=== PATIENT | female | born 1945 | race Caucasian/White ===

== ENCOUNTER → 2017-09-28 | Outpatient (CLI) | payer MEDICARE, BC ==
--- NOTE | 2017-09-28 13:45 | US ---
EXAMINATION TYPE: US thyroid st tissue head/neck DATE OF EXAM: 09/28/2017 COMPARISON: NONE CLINICAL HISTORY: E04.1 Thyroid nodule. Difficulty swallowing, history of nodules GLAND SIZE: Right Lobe: 4.2 x 2.4 x 2.5 cm Overall Parenchyma: heterogenous Left Lobe: 4.3 x 1.5 x 1.2 cm Overall Parenchyma: heterogeneous Isthmus Thickness: 0.2 cm NODULES RIGHT: # of nodules measured on right: 2 1. 1.1 X 0.9 x 0.8 cm isoechoic solid nodule at the upper pole with well-defined margins; . This n odule is taller than wide and shows intranodular vascularity. Prior size: no prior exam here 2. 2.9 X 2.4 x 2.1 cm isoechoic mixed nodule at the mid pole with well-defined margins; . This nod ule is taller than wide and shows intranodular vascularity. Prior size: no prior exam LEFT: # of nodules measured on left: 1 1. 1.2 X 0.7 x 0.8 cm hypoechoic solid nodule at the mid pole with well-defined margins; . This no dule is wider than tall and shows intranodular vascularity. Prior size: no prior exam here ISTHMUS: # of nodules measured in the isthmus: 0 Bilateral neck scanned, no evidence of lymphadenopathy. Heterogeneous thyroid gland. 2 nodules measured on the right and 1 on the left IMPRESSION: Nonspecific thyroid nodularity and heterogeneity. The need to biopsy should be made on a clinical basis.
== END | disposition home or self-care (01) ==
LOC: RADUSWWP 13:02
PROVIDERS: ATTEND Otolaryngology
DX: E04.1 Nontoxic single thyroid nodule (principal)
CPT/HCPCS: 76536

== ENCOUNTER 2017-12-04 13:37 | Day surgery (SDC) | payer BC, MEDICARE ==
[2017-12-04 13:53] VITALS: BP 129/68; PULSE 73; RESP 20; TEMP 98
--- NOTE | 2017-12-04 14:56 | US ---
ULTRASOUND GUIDED FNA THYROID BIOPSY: CLINICAL HISTORY: Large right thyroid nodule and 2 additional smaller nodules. FINDINGS: The procedure was explained to the patient. The patient could only tolerate a biopsy of a single nod ule. Patient deferred biopsy of the 2 smaller nodules. The risks, complications, benefits and alterna tives were discussed and any questions were answered. Informed consent was obtained. Patient was pl aced supine on the ultrasound table and prepped and draped in the usual sterile fashion. Utilizing a 25 gauge needle, five passes were made into the large right thyroid nodule. Patient was stable throughout the procedure. Pathology is pending. All elements of maximal barrier technique were utilized. IMPRESSION: 1. Successful ultrasound guided FNA thyroid biopsy.
== END 2017-12-04 14:35 | disposition home or self-care (01) ==
LOC: RADPROMAIN 13:37
PROVIDERS: ATTEND Otolaryngology
DX: E04.1 Nontoxic single thyroid nodule (principal)
CPT/HCPCS: 10022; 76942; 88173; 88305

== ENCOUNTER 2018-06-03 22:40 | Inpatient (IN) | payer MEDICARE, OTHER ==
[2018-06-03] MEDS ORDERED: MORPHINE SULFATE 4 MG/ML SYRINGE IVP STA (22:55)
[2018-06-03] MEDS ORDERED: DIAZEPAM 5 MG/ML 2 ML INJ IVP STA (22:55)
--- NOTE | 2018-06-03 22:58 | ED ---
Fall HPI - General Chief Complaint: Fall Stated Complaint: Fall with hip injury Time Seen by Provider: 06/03/18 22:46 Source: patient Mode of arrival: EMS - History of Present Illness Initial Comments: Lu is a 72-year-old female presents the emergency department today via ambulance for evaluation of right-sided hip pain. Patient reports that she was in her restroom, she stepped on a rug which slid out from under her and she fell , she reports that her right leg twisted and then she fell onto her right hip. She reports significant pain in her right hip, she has not been able to stand or bear weight since that time. In route to the hospital she did receive Zofran and fentanyl she reports temporarily eased her pain however she reports now she feels as though she is having muscle spasms or charley horse of her thigh which is worsening everything. Patient denies striking her head or neck, she denies any loss of consciousness. She denies any neck back or upper extremity pain. She reports all of her pain and is in her right hip and the muscle spasm in her right thigh. - Related Data Home Medications Medication Instructions Recorded Confirmed Escitalopram Oxalate 15 mg PO DAILY 03/08/16 12/04/17 LORazepam [Lorazepam] 0.5 mg PO HS 03/08/16 12/04/17 Latanoprost [Xalatan 0.005%] 1 drop BOTH EYES HS 03/08/16 12/04/17 Allergies Allergy/AdvReac Type Severity Reaction Status Date / Time iodine AdvReac Anaphylaxis Verified 06/03/18 22:49 Review of Systems ROS Statement: Those systems with pertinent positive or pertinent negative responses have been documented in the HPI. ROS Other: All systems not noted in ROS Statement are negative. Past Medical History Additional Past Medical History / Comment(s): neck injury - fx History of Any Multi-Drug Resistant Organisms: None Reported Past Surgical History: Bladder Surgery, Hysterectomy Additional Past Surgical History / Comment(s): thyroid, cystocele, rectocele, breast biopsy Past Anesthesia/Blood Transfusion Reactions: Postoperative Nausea & Vomiting ( PONV) Past Psychological History: Depression Smoking Status: Never smoker Past Alcohol Use History: Occasional Past Drug Use History: None Reported General Exam - General Exam Comments Initial Comments: Physical Exam GENERAL: Patient is well-developed and well-nourished. Patient is nontoxic and well- hydrated and is in moderate distress secondary to pain HENT: Normocephalic, Atraumatic. EYES: PERRL, EOMI PULMONARY: Unlabored respirations. CARDIOVASCULAR: There is a regular rate and rhythm without any murmurs gallops or rubs. ABDOMEN: Soft and nontender with normal bowel sounds. SKIN: Skin is clear with no lesions or rashes and otherwise unremarkable. : Deferred NEUROLOGIC: Patient is alert and oriented x3. Moving all extremities spontaneously MUSCULOSKELETAL: Decreased ROM of right lower extremity secondary to pain, hip is in a flexed position, and he is also on a flexed position. Does not appear to be shortened and rotated. Vascularly intact distally to the injury PSYCHIATRIC: Normal psychiatric evaluation. Limitations: no limitations Limitations: no limitations Course Vital Signs 06/03/18 22:45 Temperature 97.7 F Pulse Rate 75 Respiratory 16 Rate Blood Pressure 153/97 O2 Sat by Pulse 96 Oximetry Medical Decision Making - Medical Decision Making The patient was seen and evaluated, history was obtained from the patient and EMS Patient with a mechanical slip and fall on a rug that was placed over a tile surface, complaining of right hip pain at the time of arrival she describes her pain as a muscle spasm Trauma workup was ordered Patient declined morphine, stating that it causes her nausea and vomiting Patient did receive Zofran and Fentanyl en route to the hospital X-ray of the pelvis does confirm an impacted subcapital fracture of the right hip, these results were discussed with the patient who requests a consult to [facility] for admission She care was discussed with Dr. Jerez who accepts the admission to his service with a consult to medicine for medical management. Admission orders were placed , given the patient will not tolerate morphine, when necessary Dilaudid was ordered with when necessary antiemetics including Zofran and Compazine with Benadryl for any agitation caused by the Compazine. Morales catheter was ordered as well as IV fluids. Patient has been were updated on the plan. - Lab Data Result diagrams: 06/03/18 23:23 06/03/18 23:23 Lab Results 06/03/18 06/03/18 06/03/18 Range/Units 23:23 23:23 23:23 WBC 14.0 H (3.8-10.6) k/uL RBC 4.68 (3.80-5.40) m/uL Hgb 13.6 (11.4-16.0) gm/dL Hct 40.7 (34.0-46.0) % MCV 87.1 (80.0-100.0) fL MCH 29.2 (25.0-35.0) pg MCHC 33.5 (31.0-37.0) g/dL RDW 12.9 (11.5-15.5) % Plt Count 279 (150-450) k/uL Neutrophils % 82 % Lymphocytes % 13 % Monocytes % 3 % Eosinophils % 1 % Basophils % 0 % Neutrophils # 11.5 H (1.3-7.7) k/uL Lymphocytes # 1.9 (1.0-4.8) k/uL Monocytes # 0.4 (0-1.0) k/uL Eosinophils # 0.2 (0-0.7) k/uL Basophils # 0.1 (0-0.2) k/uL PT (9.0-12.0) sec INR (<1.2) APTT (22.0-30.0) sec Sodium 137 (137-145) mmol/L Potassium 4.5 (3.5-5.1) mmol/L Chloride 105 (98-107) mmol/L Carbon Dioxide 22 (22-30) mmol/L Anion Gap 10 mmol/L BUN 25 H (7-17) mg/dL Creatinine 1.00 (0.52-1.04) mg/dL Est GFR (CKD-EPI)AfAm 66 (>60 ml/min/1.73 sqM) Est GFR (CKD-EPI)NonAf 58 (>60 ml/min/1.73 sqM) Glucose 124 H (74-99) mg/dL Calcium 9.5 (8.4-10.2) mg/dL Total Bilirubin 0.4 (0.2-1.3) mg/dL AST 27 (14-36) U/L ALT 29 (9-52) U/L Alkaline Phosphatase 137 H (38-126) U/L Total Creatine Kinase 59 (30-135) U/L Total Protein 7.4 (6.3-8.2) g/dL Albumin 4.2 (3.5-5.0) g/dL Urine Color Urine Appearance (Clear) Urine pH (5.0-8.0) Ur Specific [place] (1.001-1.035) Urine Protein (Negative) Urine Glucose (UA) (Negative) Urine Ketones (Negative) Urine Blood (Negative) Urine Nitrite (Negative) Urine Bilirubin (Negative) Urine Urobilinogen (<2.0) mg/dL Ur Leukocyte Esterase (Negative) Urine Opiates Screen (NotDetected) Ur Oxycodone Screen (NotDetected) Urine Methadone Screen (NotDetected) Ur Propoxyphene Screen (NotDetected) Ur Barbiturates Screen (NotDetected) U Tricyclic Antidepress (NotDetected) Ur Phencyclidine Scrn (NotDetected) Ur Amphetamines Screen (NotDetected) U Methamphetamines Scrn (NotDetected) U Benzodiazepines Scrn (NotDetected) Urine Cocaine Screen (NotDetected) U Marijuana (THC) Screen (NotDetected) Serum Alcohol <10 mg/dL 06/03/18 06/03/18 Range/Units 23:23 23:23 WBC (3.8-10.6) k/uL RBC (3.80-5.40) m/uL Hgb (11.4-16.0) gm/dL Hct (34.0-46.0) % MCV (80.0-100.0) fL MCH (25.0-35.0) pg MCHC (31.0-37.0) g/dL RDW (11.5-15.5) % Plt Count (150-450) k/uL Neutrophils % % Lymphocytes % % Monocytes % % Eosinophils % % Basophils % % Neutrophils # (1.3-7.7) k/uL Lymphocytes # (1.0-4.8) k/uL Monocytes # (0-1.0) k/uL Eosinophils # (0-0.7) k/uL Basophils # (0-0.2) k/uL PT 9.5 (9.0-12.0) sec INR 1.0 (<1.2) APTT 20.5 L (22.0-30.0) sec Sodium (137-145) mmol/L Potassium (3.5-5.1) mmol/L Chloride (98-107) mmol/L Carbon Dioxide (22-30) mmol/L Anion Gap mmol/L BUN (7-17) mg/dL Creatinine (0.52-1.04) mg/dL Est GFR (CKD-EPI)AfAm (>60 ml/min/1.73 sqM) Est GFR (CKD-EPI)NonAf (>60 ml/min/1.73 sqM) Glucose (74-99) mg/dL Calcium (8.4-10.2) mg/dL Total Bilirubin (0.2-1.3) mg/dL AST (14-36) U/L ALT (9-52) U/L Alkaline Phosphatase (38-126) U/L Total Creatine Kinase (30-135) U/L Total Protein (6.3-8.2) g/dL Albumin (3.5-5.0) g/dL Urine Color Yellow Urine Appearance Clear (Clear) Urine pH 7.5 (5.0-8.0) Ur Specific [place] 1.013 (1.001-1.035) Urine Protein Negative (Negative) Urine Glucose (UA) Negative (Negative) Urine Ketones Trace H (Negative) Urine Blood Negative (Negative) Urine Nitrite Negative (Negative) Urine Bilirubin Negative (Negative) Urine Urobilinogen <2.0 (<2.0) mg/dL Ur Leukocyte Esterase Negative (Negative) Urine Opiates Screen Not Detected (NotDetected) Ur Oxycodone Screen Not Detected (NotDetected) Urine Methadone Screen Not Detected (NotDetected) Ur Propoxyphene Screen Not Detected (NotDetected) Ur Barbiturates Screen Not Detected (NotDetected) U Tricyclic Antidepress Not Detected (NotDetected) Ur Phencyclidine Scrn Not Detected (NotDetected) Ur Amphetamines Screen Not Detected (NotDetected) U Methamphetamines Scrn Not Detected (NotDetected) U Benzodiazepines Scrn Detected H (NotDetected) Urine Cocaine Screen Not Detected (NotDetected) U Marijuana (THC) Screen Not Detected (NotDetected) Serum Alcohol mg/dL - EKG Data -: EKG Interpreted by Me EKG Comments: EKG obtained at 11:26 PM, rate is 94, rhythm is sinus, there is noted to be frequent PVCs and significant artifact secondary to the patient's agitation. There is no acute ST elevations or depressions no evidence of acute ischemia or infarction. Disposition Clinical Impression: Fall, Fracture of hip, right, closed Disposition: ADMITTED IP TO THIS HOSP Is patient prescribed a controlled substance at d/c from ED?: No Referrals: Clinton Finch MD [Primary Care Provider] - 1-2 days
[2018-06-03 23:45] LABS: Basophils # (A) 0.1 k/uL (0-0.2); Basophils % (A) 0 %; Eosinophils # (A) 0.2 k/uL (0-0.7); Eosinophils % (A) 1 %; HCT 40.7 % (34.0-46.0); HGB 13.6 gm/dL (11.4-16.0); Lymphocytes # (A) 1.9 k/uL (1.0-4.8); Lymphocytes % (A) 13 %; MCH 29.2 pg (25.0-35.0); MCHC 33.5 g/dL (31.0-37.0); MCV 87.1 fL (80.0-100.0); Mean Platelet Volume 7.3; Monocytes # (A) 0.4 k/uL (0-1.0); Monocytes % (A) 3 %; Neutrophils # (A) 11.5 k/uL (1.3-7.7); Neutrophils % (A) 82 %; Platelet Count 279 k/uL (150-450); RBC 4.68 m/uL (3.80-5.40); RDW 12.9 % (11.5-15.5)
[2018-06-03 23:56] LABS: ALT 29 U/L (9-52); AST 27 U/L (14-36); Albumin 4.2 g/dL (3.5-5.0); Alcohol <10 mg/dL; Alkaline Phosphatase 137 U/L (38-126); Anion Gap 10 mmol/L; Blood Urea Nitrogen 25 mg/dL (7-17); Calcium 9.5 mg/dL (8.4-10.2); Carbon Dioxide 22 mmol/L (22-30); Chloride 105 mmol/L (98-107); Glucose 124 mg/dL (74-99); Potassium 4.5 mmol/L (3.5-5.1); Sodium 137 mmol/L (137-145); Total Bilirubin 0.4 mg/dL (0.2-1.3); Total Protein 7.4 g/dL (6.3-8.2)
[2018-06-03 23:57] LABS: Appearance,Urine Clear (Clear); Bilirubin,Urine Negative (Negative); Blood,Urine Negative (Negative); Color,Urine Yellow; Glucose,Urine (UA) Negative (Negative); Ketones,Urine Trace (Negative); Leukocyte Esterase,Urine Negative (Negative); Nitrite,Urine Negative (Negative); PH, Urine 7.5 (5.0-8.0); Protein,Urine Negative (Negative); Specific Gravity,Urine 1.013 (1.001-1.035); Urobilinogen,Urine <2.0 mg/dL (<2.0)
--- NOTE | 2018-06-04 00:02 | XR ---
EXAMINATION TYPE: XR pelvis AP view DATE OF EXAM: 06/03/2018 COMPARISON: NONE HISTORY: Fall. Hip pain TECHNIQUE: Single view FINDINGS: There is impacted subcapital fracture right femur. There is up to 1 cm impaction. There is no dislocation. Pelvic ring is intact. Sacroiliac joints appear intact. IMPRESSION: Acute impacted subcapital fracture right femur.
[2018-06-04 00:08] LABS: Amphetamine Screen,Urine Not Detected (NotDetected); Barbiturate Screen,Urine Not Detected (NotDetected); Benzodiazepines Screen,Urine Detected (NotDetected); Cocaine Screen,Urine Not Detected (NotDetected); Methadone Screen, Urine Not Detected (NotDetected); Opiate Screen,Urine Not Detected (NotDetected); Oxycodone Screen, Urine Not Detected (NotDetected); Phencyclidine Screen,Urine Not Detected (NotDetected); Tricyclic Antidepressant,Urine Not Detected (NotDetected); Urn Cannabinoid Scrn Not Detected (NotDetected)
[2018-06-04 00:14] LABS: Prothrombin Time 9.5 sec (9.0-12.0)
--- NOTE | 2018-06-04 00:22 | XR ---
EXAMINATION TYPE: XR Hip Complete RT DATE OF EXAM: 06/03/2018 COMPARISON: NONE HISTORY: Hip pain TECHNIQUE: 2 views FINDINGS: There is impacted subcapital fracture right femur. There is probably more than 2.5 cm of im paction on the medial aspect of the femoral head. There is no dislocation. IMPRESSION: Impacted subcapital femoral neck fracture.
[2018-06-04] MEDS ORDERED: fentaNYL (PF) 50 MCG/ML 2 ML AMP IV STA (00:24)
[2018-06-04] MEDS ORDERED: HYDROmorphone 1 MG/ML 1 ML SYRINGE IVP PRN (00:29)
[2018-06-04] MEDS ORDERED: NALOXONE 0.4 MG/ML 1 ML VIAL IV PRN (00:29)
[2018-06-04] MEDS ORDERED: ONDANSETRON 4 MG/2 ML VIAL IVP PRN (00:29)
[2018-06-04] MEDS ORDERED: PROCHLORPERAZINE 5 MG TAB PO PRN (00:29)
[2018-06-04 00:31] LABS: Creatine Kinase 59 U/L (30-135)
[2018-06-04 00:32] LABS: Partial Thromboplastin Time 20.5 sec (22.0-30.0)
[2018-06-04] MEDS ORDERED: diphenhydrAMINE 25 MG CAP PO PRN (00:32)
[2018-06-04 00:44] LABS: Creatine Kinase MB 2.2 ng/mL (0.0-2.4); Troponin I <0.012 ng/mL (0.000-0.034)
[2018-06-04] MEDS ORDERED: fentaNYL (PF) 50 MCG/ML 2 ML AMP IV PRN (02:10)
[2018-06-04] MEDS ORDERED: LORazepam 2 MG/ML INJ IV PRN (02:14)
--- NOTE | 2018-06-04 02:15 | XR ---
EXAMINATION TYPE: XR chest 1V portable DATE OF EXAM: 06/04/2018 COMPARISON: 08/24/2011 HISTORY: Fall. Hip pain TECHNIQUE: Single frontal view of the chest is obtained. FINDINGS: Heart and mediastinum are normal. Lungs are clear. Diaphragm is normal. Bony thorax is int act. There is no pleural effusion. IMPRESSION: No active cardiopulmonary disease. Normal heart. No change compared to 08/24/2011.
[2018-06-04] MEDS: HYDROcodone/APAP 7.5-325MG 1 EACH TAB PO PRN ×2 (02:33→08:29)
[2018-06-04] MEDS: SODIUM CHLORIDE 0.9% 1,000 ML IV SCH ×3 (03:58→22:32)
[2018-06-04 04:09] VITALS: BMI 21.7
[2018-06-04] MEDS ORDERED: MAGNESIUM HYDROXIDE 2,400 MG/10 ML CUP PO PRN (09:33)
[2018-06-04] MEDS ORDERED: TEMAZEPAM 15 MG CAP PO PRN (09:33)
[2018-06-04] MEDS ORDERED: traMADol 50 MG TAB PO PRN (09:33)
[2018-06-04] MEDS ORDERED: Acetaminophen-Codeine 300-30mg TAB PO PRN ×2 (09:33)
[2018-06-04] MEDS ORDERED: DIAZEPAM 5 MG TAB PO PRN (09:33)
[2018-06-04] MEDS ORDERED: DIAZEPAM 5 MG/ML 2 ML INJ IVP PRN (09:41)
--- NOTE | 2018-06-04 10:40 | P.HPOR ---
History of Present Illness H&P Date: 06/04/18 Chief Complaint: right hip fracture Patient is a 72-year-old female seen at bedside this morning. She was admitted through the emergency department last evening after a fall at home resulted in a right femoral neck fracture. Patient reports that she was in her restroom, she stepped on a rug which slid out from under her and she fell, she reports that her right leg twisted and then she fell onto her right hip. She has right hip pain as expected. Patient denies striking her head or neck, she denies any loss of consciousness. She denies any neck back or upper extremity pain. She denies numbness, tingling, fever, chills chest pain, SOB or other. Review of Systems All systems: negative Constitutional: Denies chills, Denies fever Eyes: denies blurred vision, denies pain Ears, nose, mouth and throat: Denies headache, Denies sore throat Cardiovascular: Denies chest pain, Denies shortness of breath Respiratory: Denies cough Gastrointestinal: Denies abdominal pain, Denies diarrhea, Denies nausea, Denies vomiting Genitourinary: Denies dysuria, Denies hematuria Musculoskeletal: Denies myalgias Integumentary: Denies pruritus, Denies rash Neurological: Denies numbness, Denies weakness Psychiatric: Denies anxiety, Denies depression Endocrine: Denies fatigue, Denies weight change Past Medical History Past Medical History: Hyperlipidemia Additional Past Medical History / Comment(s): neck injury - fx, glaucoma History of Any Multi-Drug Resistant Organisms: None Reported Past Surgical History: Bladder Surgery, Hysterectomy Additional Past Surgical History / Comment(s): thyroid, cystocele, rectocele, breast biopsy Left breast Past Anesthesia/Blood Transfusion Reactions: Postoperative Nausea & Vomiting ( PONV) Past Psychological History: Depression Smoking Status: Never smoker Past Alcohol Use History: Occasional Past Drug Use History: None Reported - Past Family History Mother Family Medical History: Congestive Heart Failure (CHF) Additional Family Medical History / Comment(s): parkinsons Father Family Medical History: Hyperlipidemia, Pneumonia Additional Family Medical History / Comment(s): migraines Medications and Allergies Home Medications Medication Instructions Recorded Confirmed Type Escitalopram Oxalate 15 mg PO DAILY 03/08/16 06/04/18 History Latanoprost [Xalatan 0.005%] 1 drop BOTH EYES HS 03/08/16 06/04/18 History Cholecalciferol [Vitamin D3] 5,000 unit PO DAILY 06/04/18 06/04/18 History Sulfamethoxazole/Trimethoprim 1 tab PO BID 06/04/18 06/04/18 History [Bactrim DS 800-160 mg] Timolol Maleate [Timolol Maleate 1 applic BOTH EYES BID 06/04/18 06/04/18 History 0.5% Ophth Gel] Allergies Allergy/AdvReac Type Severity Reaction Status Date / Time iodine AdvReac Anaphylaxis Verified 06/04/18 08:09 Physical Examination Inspection of right lower extremity shows no wounds or lacerations. No deformity. Her leg is externally rotated and shortened. ROM of right hip not tested due to fracture. Neurovascular status motor and sensation is grossly intact throughout lower extremity. Calf is SNT. 2+ DP pulse and less than 2 sec cap refill present. Results Xrays right hip and pelvis show a displaced femoral neck fracture. - Labs Labs: Abnormal Lab Results - Last 24 Hours (Table) 06/03/18 06/03/18 06/03/18 Range/Units 23:23 23:23 23:23 WBC 14.0 H (3.8-10.6) k/uL Neutrophils # 11.5 H (1.3-7.7) k/uL APTT (22.0-30.0) sec BUN 25 H (7-17) mg/dL Glucose 124 H (74-99) mg/dL Alkaline Phosphatase 137 H (38-126) U/L Urine Ketones Trace H (Negative) U Benzodiazepines Scrn Detected H (NotDetected) 06/03/18 Range/Units 23:23 WBC (3.8-10.6) k/uL Neutrophils # (1.3-7.7) k/uL APTT 20.5 L (22.0-30.0) sec BUN (7-17) mg/dL Glucose (74-99) mg/dL Alkaline Phosphatase (38-126) U/L Urine Ketones (Negative) U Benzodiazepines Scrn (NotDetected) H & H 06/03/18 Range/Units 23:23 Hgb 13.6 (11.4-16.0) gm/dL Hct 40.7 (34.0-46.0) % Coagulation 06/03/18 Range/Units 23:23 INR 1.0 (<1.2) Result Diagrams: 06/03/18 23:23 06/03/18 23:23 Assessment and Plan (1) Fracture of hip, right, closed Narrative/Plan: Patient has been reviewed with Dr. Jerez. Plan is to proceed with surgical intervention this afternoon including a right hip hemiarthroplasty. Pre-op clearance has been requested. Procedure has been boarded. She has been NPO. Current Visit: Yes Status: Acute Priority: Medium Code(s): S72.001A - FRACTURE OF UNSP PART OF NECK OF RIGHT FEMUR, INIT SNOMED Code(s): 217262567 Time with Patient: Less than 30
--- NOTE | 2018-06-04 11:51 | P.CONS ---
History of Present Illness - Reason for Consult Consult date: 06/04/18 Medical management - Chief Complaint Hip fracture - History of Present Illness This is a 72-year-old patient of Dr. Finch with past medical history of hyperlipidemia, migraine headaches, irritable bowel syndrome, recurrent depression, glaucoma. Patient is currently under treatment for urinary tract infection has 4 more days of Bactrim to complete. She gives history that she is normally very active and plays tennis on a regular basis. She was in her bathroom which has a tiled floor and slipped on a rug and approaching her leg by the toilet. She denies having any loss consciousness or syncope, no dizziness prior to the incident. She states she has had a bone density test which she was told was okay in the past. Patient came in by ambulance to [facility] emergency center for evaluation. Pelvic and right hip x-rays showed acute impacted subcapital fracture right femur. Chest x-ray shows no acute card a pulmonary process. Initial blood pressure was elevated, pulse ox 96%, afebrile. White count was 14 , hemoglobin 13.7, creatinine 1. Blood glucose 124. Alkaline phosphatase 137. Urinalysis was negative for infection. Urine drug screen positive for benzodiazepines. EKG is normal sinus rhythm with occasional PVCs. [facility] with plan for surgical intervention. Pain is currently controlled. Patient states that she does have trouble taking morphine or Dilaudid due to nausea but is tolerating fentanyl without nausea. She has a Morales catheter in place. She is scheduled this afternoon for right hip hemiarthroplasty. Patient has been cleared medically for surgical intervention this afternoon. Review of Systems All systems: negative Constitutional: Denies chills, Denies fatigue, Denies fever, Denies lethargy, Denies malaise, Denies poor appetite, Denies weakness, Denies weight loss Eyes: denies blurred vision, denies pain Ears, nose, mouth and throat: Denies dysphagia, Denies headache, Denies sore throat, Denies vertigo Cardiovascular: Denies chest pain, Denies decreased exercise tolerance, Denies dyspnea on exertion, Denies edema, Denies leg edema, Denies lightheadedness, Denies shortness of breath, Denies syncope Respiratory: Denies cough, Denies cough with sputum, Denies dyspnea, Denies excessive sputum, Denies hemoptysis, Denies home oxygen, Denies wheezing Gastrointestinal: Denies abdominal pain, Denies constipation, Denies diarrhea, Denies loss of appetite, Denies melena, Denies nausea, Denies vomiting Genitourinary: Denies dysuria, Denies hematuria, Denies urinary frequency Musculoskeletal: Denies frequent falls, Denies gait dysfunction, Denies muscle weakness, Denies myalgias, Denies neck pain, Denies neck stiffness Musculoskeletal: right: hip pain Integumentary: Denies pruritus, Denies rash, Denies wounds Neurological: Denies aphasia, Denies change in mentation, Denies change in speech, Denies confusion, Denies gait dysfunction, Denies head injury, Denies headaches, Denies memory loss, Denies numbness, Denies seizures, Denies syncope , Denies weakness Psychiatric: Denies anxiety, Denies depression Endocrine: Denies fatigue, Denies weight change Past Medical History Past Medical History: Hyperlipidemia Additional Past Medical History / Comment(s): neck injury - fx, glaucoma, migraine headaches, irritable bowel syndrome History of Any Multi-Drug Resistant Organisms: None Reported Past Surgical History: Bladder Surgery, Hysterectomy Additional Past Surgical History / Comment(s): thyroid, cystocele, rectocele, breast biopsy Left breast Past Anesthesia/Blood Transfusion Reactions: Postoperative Nausea & Vomiting ( PONV) Past Psychological History: Depression Additional Psychological History / Comment(s): The patient has suffered from depression for 9 years since her son was killed in a motor vehicle accident. Smoking Status: Never smoker Past Alcohol Use History: Occasional Additional Past Alcohol Use History / Comment(s): Patient is a lifelong nonsmoker. She drinks wine occasionally. No illicit drug use, no alcohol abuse. She is retired from [employer]. She is and lives at home with her . Past Drug Use History: None Reported - Past Family History Mother Family Medical History: Congestive Heart Failure (CHF) Additional Family Medical History / Comment(s): parkinsons. Mother at age 86 from heart failure with history of dementia. Father Family Medical History: Hyperlipidemia, Pneumonia Additional Family Medical History / Comment(s): Father at age 90 after bladder was perforated and suffered pneumonia at the time of his . Sister(s) Additional Family Medical History / Comment(s): it was just straighten out again patient has 1 sister with no major medical problems. Patient has one twin brother that at 2 weeks of age. Patient has one son that 9 years ago in a motor vehicle accident. Patient's one daughter with no major medical problems. Medications and Allergies Home Medications Medication Instructions Recorded Confirmed Type Escitalopram Oxalate 15 mg PO DAILY 03/08/16 06/04/18 History Latanoprost [Xalatan 0.005%] 1 drop BOTH EYES HS 03/08/16 06/04/18 History Cholecalciferol [Vitamin D3] 5,000 unit PO DAILY 06/04/18 06/04/18 History Sulfamethoxazole/Trimethoprim 1 tab PO BID 06/04/18 06/04/18 History [Bactrim DS 800-160 mg] Timolol Maleate [Timolol Maleate 1 applic BOTH EYES BID 06/04/18 06/04/18 History 0.5% Ophth Gel] Allergies Allergy/AdvReac Type Severity Reaction Status Date / Time iodine AdvReac Anaphylaxis Verified 06/04/18 08:09 Physical Exam Vitals: Vital Signs Temp Pulse Pulse Resp BP BP Pulse Ox 06/04/18 02:10 98.0 F 81 20 156/80 97 06/04/18 01:04 98.4 F 89 20 155/80 96 06/03/18 22:45 97.7 F 75 16 153/97 96 Intake and Output 06/03/18 06/04/18 06/04/18 22:59 06:59 14:59 Intake Total 200 Balance 200 Intake: Intake, IV Titration 200 Amount Sodium Chloride 0.9% 1, 200 000 ml @ 100 mls/hr IV . Q10H [facility] Rx#:[id number] Other: Voiding Method Indwelling Catheter Weight 72.575 kg 72.575 kg Gen: This is a 72-year-old female. Patient is in bed and appears to be comfortable. HEENT: Head is atraumatic, normocephalic. Pupils equal, round. Sclerae is anicteric. NECK: Supple. No JVD. No lymphadenopathy. No thyromegaly. LUNGS: Clear to auscultation. No wheezes or rhonchi. No intercostal retractions. HEART: Regular rate and rhythm. No murmur. ABDOMEN: Soft. Bowel sounds are present. No masses. No tenderness. EXTREMITIES: No pedal edema. No calf tenderness. Decreased range of motion to the right hip. Appears to be shortened and rotated. NEUROLOGICAL: Patient is awake, alert and oriented x3. Cranial nerves 2 through 12 are grossly intact. Results CBC & Chem 7: 06/03/18 23:23 06/03/18 23:23 Labs: Abnormal Lab Results - Last 24 Hours (Table) 06/03/18 06/03/18 06/03/18 Range/Units 23:23 23:23 23:23 WBC 14.0 H (3.8-10.6) k/uL Neutrophils # 11.5 H (1.3-7.7) k/uL APTT (22.0-30.0) sec BUN 25 H (7-17) mg/dL Glucose 124 H (74-99) mg/dL Alkaline Phosphatase 137 H (38-126) U/L Urine Ketones Trace H (Negative) U Benzodiazepines Scrn Detected H (NotDetected) 06/03/18 Range/Units 23:23 WBC (3.8-10.6) k/uL Neutrophils # (1.3-7.7) k/uL APTT 20.5 L (22.0-30.0) sec BUN (7-17) mg/dL Glucose (74-99) mg/dL Alkaline Phosphatase (38-126) U/L Urine Ketones (Negative) U Benzodiazepines Scrn (NotDetected) Assessment and Plan Plan: 1. Right hip fracture due to traumatic fall. The patient is cleared medically for surgical intervention. Orthopedics is planning for right hip hemiarthroplasty. Continue current pain management. Since biometry to reduce incidence of atelectasis and hospital-acquired pneumonia. DVT prophylaxis per orthopedics. 2. Hyperlipidemia not currently on medication, stable. 3. Recurrent depression. Continue escitalopram 12.5 mg daily. 4. Glaucoma. Continue eyedrops. 5. Vitamin D deficiency. Continue supplement. 6. Migraine headaches, stable. 7. Irritable bowel syndrome, stable. 8. DVT prophylaxis to be determined by orthopedics. 9. GI prophylaxis. Pepcid. 10. Active treatment for urinary tract infection. Patient will be ordered for Bactrim for 4 more days to complete course. Patient will be admitted to the hospital for a minimum of 2 night stay. Discharge plan: To be determined Impression and plan of care have been directed as dictated by the signing physician. Jaycee Neely nurse practitioner acting as scribe for signing physician.
[2018-06-04] MEDS ORDERED: IV FLUID CONTINUATION 1,000 ML IV ONE (12:32)
[2018-06-04] MEDS ORDERED: ONDANSETRON 4 MG/2 ML VIAL IVP ONE (12:35)
[2018-06-04] MEDS ORDERED: DEXAMETHASONE SOD PHOSPHATE 10 MG/ML 1 ML VIAL IV ONE (12:35)
[2018-06-04] MEDS ORDERED: LACTATED RINGERS 1,000 ML IV ONE ×2 (13:03→15:18)
[2018-06-04] MEDS ORDERED: MIDAZOLAM 2 MG/2 ML VIAL ONE (14:11)
[2018-06-04] MEDS ORDERED: KETAMINE 10 MG/ML 20 ML VIAL ONE (14:11)
[2018-06-04] MEDS ORDERED: PROPOFOL 10 MG/ML 20 ML VIAL IV ONE (14:11)
[2018-06-04] MEDS ORDERED: fentaNYL (PF) 50 MCG/ML 2 ML AMP ONE (14:11)
[2018-06-04] MEDS ORDERED: ePHEDrine SULFATE/0.9% NACL/PF 50 MG/5 ML SYRINGE IV ONE (14:11)
[2018-06-04] MEDS ORDERED: LIDOCAINE 1% INJ 10MG/ML (20 ML MDV) ONE (14:11)
[2018-06-04] MEDS ORDERED: PHENYLEPHRINE-0.9% NACL SYG 1 MG/10 ML SYRINGE ONE (14:11)
[2018-06-04] MEDS ORDERED: ceFAZolin 3,000 MG in SODIUM CHLORIDE 0.9% IRRIGATIO 3,000 ML IRRIGATION ONE (14:47)
[2018-06-04] MEDS ORDERED: HYDROcodone/APAP 10-325MG 1 EACH TAB PO PRN (15:55)
[2018-06-04] MEDS ORDERED: HYDROcodone/APAP 5-325MG 1 EACH TAB PO PRN (15:55)
[2018-06-04] MEDS ORDERED: HYDROcodone/APAP 7.5-325MG 1 EACH TAB PO PRN ×2 (15:55)
[2018-06-04] MEDS ORDERED: ACETAMINOPHEN TAB 325 MG TAB PO PRN (15:55)
--- NOTE | 2018-06-04 16:21 | XR ---
EXAMINATION TYPE: XR Hip Limited RT DATE OF EXAM: 06/04/2018 CLINICAL HISTORY: Postoperative evaluation TECHNIQUE: Single portable view of the right hip was submitted. FINDINGS: Noted are changes of total hip arthroplasty with femoral and acetabular components appearin g well seated. Alignment is anatomic. Postsurgical soft tissue changes are evident. IMPRESSION: Satisfactory postoperative alignment
[2018-06-04] MEDS: MULTIVITAMINS, THERA 1 EACH TAB PO SCH (18:30)
[2018-06-04] MEDS: SULFAMETHOX-TMP 800-160MG 1 EACH TAB PO SCH ×2 (18:30→20:03)
[2018-06-04] MEDS: hydrOXYzine PAMOATE 25 MG CAP PO PRN (18:32)
[2018-06-04] MEDS: HYDROcodone/APAP 5-325MG 1 EACH TAB PO PRN (18:34)
[2018-06-04] MEDS: ceFAZolin IN SWFI 2 GM/20 ML SYRINGE IVP SCH ×2 (19:25→20:03)
[2018-06-04] MEDS: SENNOSIDES-DOCUSATE SODIUM 1 EACH TAB PO SCH (20:03)
[2018-06-04] MEDS: ASPIRIN 325 MG TAB PO SCH (20:03)
[2018-06-05] MEDS: hydrOXYzine PAMOATE 25 MG CAP PO PRN (05:03)
[2018-06-05] MEDS: HYDROcodone/APAP 5-325MG 1 EACH TAB PO PRN (05:03)
--- NOTE | 2018-06-05 06:12 | OP ---
OPERATIVE REPORT DATE OF PROCEDURE: 06/04/2018 PREOPERATIVE DIAGNOSIS: Right displaced subcapital femoral neck fracture. POSTOPERATIVE DIAGNOSIS: Right displaced subcapital femoral neck fracture. PROCEDURE PERFORMED: Right hip hemiarthroplasty. SURGEON: Ke Jerez MD. CATERING ADMINISTRATIVE ASSISTANT: FREDDIE Vigil. ANESTHESIA: Spinal with sedation. ESTIMATED BLOOD LOSS: 100 mL. TOURNIQUET: None. DRAINS: None. COMPLICATIONS: None apparent. DISPOSITION: Postanesthesia care unit. INDICATIONS: Lu is a very pleasant 72-year-old female. Last night, she slipped on some tile in her house and fell directly onto her right hip. She had significant pain and could not ambulate. She was [facility] ambulance. Workup including x- rays revealed a displaced subcapital femoral neck fracture. She was admitted to my service. She is a household ambulator. Recommendation was for right hip hemiarthroplasty as her acetabulum cartilage appeared to be in good condition. The risks of the procedure were discussed with Lu and her in detail. These risks include, but are not limited to risk of infection, nerve damage, bleeding, pain, and a small risk of deep vein thrombosis which could lead to fatal pulmonary embolism. Further risks include possibility for deep infection and postoperative hip instability. All of Lu's and her 's questions were answered to their satisfaction. An appropriate informed consent was obtained. DESCRIPTION OF THE PROCEDURE: Patient identified in preop holding area. Surgical sites marked by both the patient and myself. She was given 2 grams of Ancef IV for prophylactic purposes. She was then transferred to the operative suite. She was placed supine on the operating room table. A spinal anesthetic was then administered and dosed per the anesthesia department without apparent complication. She was then placed into the left lateral decubitus position well-padded in preparation for surgery. Great care was taken to ensure that her legs were appropriately padded and that a well-padded axillary roll was placed as well. The patient's right lower extremity was then prepped and draped in usual sterile fashion. Standard surgical pause undertaken to ensure that we were operating the correct site and that appropriate preoperative antibiotics had been given. All staff in the room were in agreement and we proceeded. The tip of the greater trochanter was identified. A planned 10 cm incision centered over the tip of the greater trochanter in line with the femur was then marked with surgical pen. Incision was then made with 10 blade scalpel. Dissection was carried down sharply to the tensor fascia. The tensor fascia was then incised in line with the incision. A Charnley retractor was then placed. This exposed the underlying gluteus medius. The anterior raphe between the anterior 1/3 and posterior 2/3 of the gluteus medius was identified. I then utilized that raphe and proceeded with an anterolateral approach. This was a Hardinge type approach. The gluteus medius, gluteus minimus and the anterior capsule were taken off as a sleeve. This exposed the underlying fracture. I then utilized the guide to jessica for a freshened femoral neck cut. The femoral neck cut was then freshened with the reciprocating saw. This was approximately 1 cm proximal to the lesser trochanter. I then removed the [place]. croix femoral head with the corkscrew. The acetabulum was then inspected. The cartilage was in good condition. There were no loose bodies noted within the acetabulum. The femoral head was measured. It was measured as a size 50. The 50 trial was then placed on the lollipop and it had a good suction fit in the acetabulum. I then proceeded to deliver the femur out of the wound. The leg was then flexed and externally rotated. This provided good exposure to the proximal femur. The box coverer hand was then utilized to gain access to the proximal femur. I then utilized the starting reamer to gain access to the femoral canal. I then lateralized and then proceeded to ream starting with a 7 mm reamer and incrementally increasing up to a 10 mm reamer. There was good resistance at 10 mm. I then proceeded to broach. The broach was placed in approximately 10 to 15 degrees of anteversion. I then started with a 7 broach and broached the proximal femur up to a 10 broach. A 10 broach had a very good secure fit. I then placed a minus 3 neck and a 50 trial head. The hip was then reduced. It was very stable. It was stable throughout a full range of motion. There was very minimal . The leg lengths were approximately equal. The hip was then very carefully reduced. I had the union contract representative open a Biomet Bimetric collared size 10 stem, a minus 3 neck and a 50 mm monopolar head. The wound was first irrigated with sterile saline solution with antibiotic added via pulse lavage. The stem was then impacted into the canal in approximately 10 to 15 degrees of anteversion. The minus 3 neck was then assembled onto the monopolar head on the back table. The De La Garza taper was dried completely and then the head and neck was impacted onto the stem. The hip was then carefully reduced. Again it was stable through a full range of motion. The ligaments were approximately equal and had very minimal . At this point time, we proceeded with closure. Again the wound was thoroughly irrigated with sterile saline solution with antibiotic added via pulse lavage. The anterior capsule, gluteus medius and gluteus minimus tendons were repaired back to the greater trochanter via a #5 Ethibond transosseous suture. We utilized multiple transosseous sutures for this. The raphe between the anterior 1/3 and posterior 2/3 of the gluteus medius was then repaired with 0 Vicryl interrupted suture. Again the wound was thoroughly irrigated with antibiotic impregnated sterile saline solution via pulse lavage. The tensor fascia was then closed with a running #2 Quill suture. Again the wound was thoroughly irrigated via pulse lavage. The subcutaneous tissue closed with 2- 0 Vicryl interrupted suture. The skin was closed with 3-0 running Quill suture. Dermabond was applied to the incision. A sterile compressive dressing was then placed over the incision. A hip abduction pillow was then placed between her legs. All sponge and needle counts were deemed correct prior to closure. The patient tolerated the procedure without apparent complication. She was transferred to recovery room in stable condition. MMODL / IJN: [id number] /
[2018-06-05] MEDS: ASPIRIN 325 MG TAB PO SCH ×2 (07:39→19:57)
[2018-06-05] MEDS: SODIUM CHLORIDE 0.9% 1,000 ML IV SCH ×2 (07:40→17:51)
[2018-06-05] MEDS: SULFAMETHOX-TMP 800-160MG 1 EACH TAB PO SCH ×2 (07:40→19:57)
[2018-06-05 08:49] LABS: Basophils % (A) 0 %; Eosinophils % (A) 0 %; HCT 38.1 % (34.0-46.0); HGB 12.1 gm/dL (11.4-16.0); Lymphocytes # (A) 2.4 k/uL (1.0-4.8); Lymphocytes % (A) 19 %; MCH 28.7 pg (25.0-35.0); MCHC 31.7 g/dL (31.0-37.0); MCV 90.7 fL (80.0-100.0); Mean Platelet Volume 7.2; Monocytes # (A) 0.4 k/uL (0-1.0); Monocytes % (A) 3 %; Neutrophils % (A) 77 %; Platelet Count 230 k/uL (150-450)
[2018-06-05] MEDS: MULTIVITAMINS, THERA 1 EACH TAB PO SCH (12:11)
--- NOTE | 2018-06-05 12:16 | P.PN ---
Subjective Progress Note Date: 06/05/18 This is a 72-year-old patient of Dr. Finch with past medical history of hyperlipidemia, migraine headaches, irritable bowel syndrome, recurrent depression, glaucoma. Patient is currently under treatment for urinary tract infection has 4 more days of Bactrim to complete. She gives history that she is normally very active and plays tennis on a regular basis. She was in her bathroom which has a tiled floor and slipped on a rug and approaching her leg by the toilet. She denies having any loss consciousness or syncope, no dizziness prior to the incident. She states she has had a bone density test which she was told was okay in the past. Patient came in by ambulance to [facility] emergency center for evaluation. Pelvic and right hip x-rays showed acute impacted subcapital fracture right femur. Chest x-ray shows no acute card a pulmonary process. Initial blood pressure was elevated, pulse ox 96%, afebrile. White count was 14 , hemoglobin 13.7, creatinine 1. Blood glucose 124. Alkaline phosphatase 137. Urinalysis was negative for infection. Urine drug screen positive for benzodiazepines. EKG is normal sinus rhythm with occasional PVCs. [facility] with plan for surgical intervention. Pain is currently controlled. Patient states that she does have trouble taking morphine or Dilaudid due to nausea but is tolerating fentanyl without nausea. She has a Morales catheter in place. She is scheduled this afternoon for right hip hemiarthroplasty. Patient has been cleared medically for surgical intervention this afternoon. 06/05: Patient has had no postop palpitations. Vital signs are stable, afebrile. White count is at 13, hemoglobin 12.1. Patient is planning on subacute rehab. final inspection supervisor/manager social services is following. This patient will be ready for discharge by tomorrow. Review of Systems All systems: negative Constitutional: Denies chills, Denies fatigue, Denies fever, Denies lethargy, Denies malaise, Denies poor appetite, generalized weakness, Denies weight loss Eyes: denies blurred vision, denies pain Ears, nose, mouth and throat: Denies dysphagia, Denies headache, Denies sore throat, Denies vertigo Cardiovascular: Denies chest pain, Denies decreased exercise tolerance, Denies dyspnea on exertion, Denies edema, Denies leg edema, Denies lightheadedness, Denies shortness of breath, Denies syncope Respiratory: Denies cough, Denies cough with sputum, Denies dyspnea, Denies excessive sputum, Denies hemoptysis, Denies home oxygen, Denies wheezing Gastrointestinal: Denies abdominal pain, Denies constipation, Denies diarrhea, Denies loss of appetite, Denies melena, Denies nausea, Denies vomiting Genitourinary: Denies dysuria, Denies hematuria, Denies urinary frequency Musculoskeletal: Denies frequent falls, Denies gait dysfunction, Denies muscle weakness, Denies myalgias, Denies neck pain, Denies neck stiffness Musculoskeletal: right: hip pain, Integumentary: Denies pruritus, Denies rash, Denies wounds Neurological: Denies aphasia, Denies change in mentation, Denies change in speech, Denies confusion, Denies gait dysfunction, Denies head injury, Denies headaches, Denies memory loss, Denies numbness, Denies seizures, Denies syncope , Denies weakness Psychiatric: Denies anxiety, Denies depression Endocrine: Denies fatigue, Denies weight change Objective - Vital Signs Vital signs: Vital Signs Temp 97.9 F 06/05/18 00:54 Pulse 62 06/05/18 00:54 Resp 16 06/05/18 00:54 BP 116/64 06/05/18 00:54 Pulse Ox 93 L 06/05/18 00:54 Intake & Output 06/04/18 06/05/18 06/05/18 18:59 06:59 18:59 Intake Total 1351 350 Output Total 1750 625 Balance -399 -275 Intake: IV 1351 Intake, IV Titration 350 Amount Sodium Chloride 0.9% 1, 350 000 ml @ 100 mls/hr IV . Q10H [facility] Rx#:[id number] Output: Urine 1650 625 Estimated Blood Loss 100 Other: Voiding Method Indwelling Catheter Indwelling Catheter - Exam Gen: This is a 72-year-old female. Patient is in a recliner and appears to be comfortable. HEENT: Head is atraumatic, normocephalic. Pupils equal, round. Sclerae is anicteric. NECK: Supple. No JVD. No lymphadenopathy. No thyromegaly. LUNGS: Clear to auscultation. No wheezes or rhonchi. No intercostal retractions. HEART: Regular rate and rhythm. No murmur. ABDOMEN: Soft. Bowel sounds are present. No masses. No tenderness. EXTREMITIES: No pedal edema. No calf tenderness. Small dressing in place of the right hip with no breakthrough bleeding or drainage. NEUROLOGICAL: Patient is awake, alert and oriented x3. Cranial nerves 2 through 12 are grossly intact. - Labs CBC & Chem 7: 06/05/18 06:39 06/03/18 23:23 Assessment and Plan Plan: 1. Right hip fracture due to traumatic fall. The patient is cleared medically for surgical intervention. Orthopedics is planning for right hip hemiarthroplasty. Continue current pain management. Incentive spirometry to reduce incidence of atelectasis and hospital-acquired pneumonia. DVT prophylaxis with aspirin. 2. Hyperlipidemia not currently on medication, stable. 3. Recurrent depression. Continue escitalopram 12.5 mg daily. 4. Glaucoma. Continue eyedrops. 5. Vitamin D deficiency. Continue supplement. 6. Migraine headaches, stable. 7. Irritable bowel syndrome, stable. 8. DVT prophylaxis to be determined by orthopedics. 9. GI prophylaxis. Pepcid. 10. Active treatment for urinary tract infection. Continue Bactrim for 3 more days to complete course. Discharge plan: Most likely subacute rehab tomorrow Impression and plan of care have been directed as dictated by the signing physician. Jaycee Neely nurse practitioner acting as scribe for signing physician.
[2018-06-05] MEDS: HYDROcodone/APAP 10-325MG 1 EACH TAB PO PRN ×2 (13:32→18:46)
--- NOTE | 2018-06-05 14:24 | P.PN ---
Subjective Progress Note Date: 06/05/18 Principal diagnosis: Right hip fracture Patient is a pleasant 72-year-old female seen at bedside this afternoon. She is postop day #1 from right hip hemiarthroplasty for her right hip fracture. She has some pain at the surgical site as expected but denies any new pain or complaints. She denies numbness or tingling, calf pain, fever, chills, chest pain or shortness of breath. Objective - Vital Signs Vital signs: Vital Signs Temp 97.7 F 06/05/18 07:44 Pulse 70 06/05/18 07:44 Resp 18 06/05/18 07:44 BP 116/59 06/05/18 07:44 Pulse Ox 96 06/05/18 07:44 Intake & Output 06/04/18 06/05/18 06/05/18 18:59 06:59 18:59 Intake Total 1351 350 Output Total 1750 625 600 Balance -399 -275 -600 Intake: IV 1351 Intake, IV Titration 350 Amount Sodium Chloride 0.9% 1, 350 000 ml @ 100 mls/hr IV . Q10H [facility] Rx#:[id number] Output: Urine 1650 625 600 Uretheral (Morales) 600 Estimated Blood Loss 100 Other: Voiding Method Indwelling Catheter Indwelling Catheter Indwelling Catheter - Exam Inspection left lower extremity shows benign surgical wound with no evidence of active bleeding or drainage. Motor and sensation is grossly intact throughout the left lower extremity. Calf is soft and nontender. 2+ dorsalis pedis pulse and less than 2 second capillary refill is present. - Constitutional General appearance: Present: no acute distress - Labs CBC & Chem 7: 06/05/18 06:39 06/03/18 23:23 Labs: Abnormal Lab Results - Last 24 Hours (Table) 06/05/18 Range/Units 06:39 WBC 13.0 H (3.8-10.6) k/uL Neutrophils # 10.0 H (1.3-7.7) k/uL Assessment and Plan (1) Fracture of hip, right, closed Narrative/Plan: Patient will continue with routine postop orthopedic protocol including pain management, wound care, physical therapy, DVT prophylaxis and medical management. She is weightbearing as tolerated. Expect that she will transfer to rehab on Sunday06/07/2018 Current Visit: Yes Status: Acute Priority: Medium Code(s): S72.001A - FRACTURE OF UNSP PART OF NECK OF RIGHT FEMUR, INIT SNOMED Code(s): 469860533 Time with Patient: Less than 30
[2018-06-05] MEDS: SENNOSIDES-DOCUSATE SODIUM 1 EACH TAB PO SCH (19:57)
[2018-06-06] MEDS: SODIUM CHLORIDE 0.9% 1,000 ML IV SCH ×2 (04:31→09:18)
[2018-06-06] MEDS: ASPIRIN 325 MG TAB PO SCH ×2 (09:17→21:42)
[2018-06-06] MEDS: MULTIVITAMINS, THERA 1 EACH TAB PO SCH (09:17)
[2018-06-06] MEDS: SULFAMETHOX-TMP 800-160MG 1 EACH TAB PO SCH ×2 (09:18→21:43)
--- NOTE | 2018-06-06 09:22 | P.PN ---
Subjective Progress Note Date: 06/06/18 This is a 72-year-old patient of Dr. Finch with past medical history of hyperlipidemia, migraine headaches, irritable bowel syndrome, recurrent depression, glaucoma. Patient is currently under treatment for urinary tract infection has 4 more days of Bactrim to complete. She gives history that she is normally very active and plays tennis on a regular basis. She was in her bathroom which has a tiled floor and slipped on a rug and approaching her leg by the toilet. She denies having any loss consciousness or syncope, no dizziness prior to the incident. She states she has had a bone density test which she was told was okay in the past. Patient came in by ambulance to [facility] emergency center for evaluation. Pelvic and right hip x-rays showed acute impacted subcapital fracture right femur. Chest x-ray shows no acute card a pulmonary process. Initial blood pressure was elevated, pulse ox 96%, afebrile. White count was 14 , hemoglobin 13.7, creatinine 1. Blood glucose 124. Alkaline phosphatase 137. Urinalysis was negative for infection. Urine drug screen positive for benzodiazepines. EKG is normal sinus rhythm with occasional PVCs. [facility]opedics with plan for surgical intervention. Pain is currently controlled. Patient states that she does have trouble taking morphine or Dilaudid due to nausea but is tolerating fentanyl without nausea. She has a Morales catheter in place. She is scheduled this afternoon for right hip hemiarthroplasty. Patient has been cleared medically for surgical intervention this afternoon. 06/05: Patient has had no postop palpitations. Vital signs are stable, afebrile. White count is at 13, hemoglobin 12.1. Patient is planning on subacute rehab. training generalist/social media assistant is following. This patient will be ready for discharge by tomorrow. 06/06: Pain is currently controlled. Patient is scheduled for discharge. Patient is cleared medically for discharge. Medication reconciliation reviewed. Ortho to address pain medications. Patient would like to go to [facility] but if bed is not available, she may go to [facility]. Review of Systems All systems: negative Constitutional: Denies chills, Denies fatigue, Denies fever, Denies lethargy, Denies malaise, Denies poor appetite, generalized weakness, Denies weight loss Eyes: denies blurred vision, denies pain Ears, nose, mouth and throat: Denies dysphagia, Denies headache, Denies sore throat, Denies vertigo Cardiovascular: Denies chest pain, Denies decreased exercise tolerance, Denies dyspnea on exertion, Denies edema, Denies leg edema, Denies lightheadedness, Denies shortness of breath, Denies syncope Respiratory: Denies cough, Denies cough with sputum, Denies dyspnea, Denies excessive sputum, Denies hemoptysis, Denies home oxygen, Denies wheezing Gastrointestinal: Denies abdominal pain, Denies constipation, Denies diarrhea, Denies loss of appetite, Denies melena, Denies nausea, Denies vomiting Genitourinary: Denies dysuria, Denies hematuria, Denies urinary frequency Musculoskeletal: Denies frequent falls, Denies gait dysfunction, Denies muscle weakness, Denies myalgias, Denies neck pain, Denies neck stiffness Musculoskeletal: right: hip pain, Integumentary: Denies pruritus, Denies rash, Right hip wound Neurological: Denies aphasia, Denies change in mentation, Denies change in speech, Denies confusion, Denies gait dysfunction, Denies head injury, Denies headaches, Denies memory loss, Denies numbness, Denies seizures, Denies syncope , Denies weakness Psychiatric: Denies anxiety, Denies depression Endocrine: Denies fatigue, Denies weight change Objective - Vital Signs Vital signs: Vital Signs Temp 98.3 F 06/06/18 07:12 Pulse 85 06/06/18 07:12 Resp 16 06/06/18 07:12 BP 115/66 06/06/18 07:12 Pulse Ox 92 L 06/06/18 07:12 Intake & Output 06/05/18 06/06/18 06/06/18 18:59 06:59 18:59 Intake Total 1000 480 Output Total 600 Balance 400 480 Intake: Intake, IV Titration 800 Amount Sodium Chloride 0.9% 1, 800 000 ml @ 100 mls/hr IV . Q10H [facility] Rx#:[id number] Oral 480 Other 200 Output: Urine 600 Uretheral (Morales) 600 Other: Voiding Method Indwelling Catheter # Voids 3 1 - Exam Gen: This is a 72-year-old female. Patient is in a recliner in her room and appears to be comfortable. HEENT: Head is atraumatic, normocephalic. Pupils equal, round. Sclerae is anicteric. NECK: Supple. No JVD. No lymphadenopathy. No thyromegaly. LUNGS: Clear to auscultation. No wheezes or rhonchi. No intercostal retractions. HEART: Regular rate and rhythm. No murmur. ABDOMEN: Soft. Bowel sounds are present. No masses. No tenderness. EXTREMITIES: No pedal edema. No calf tenderness. Small dressing in place of the right hip with no breakthrough bleeding or drainage. NEUROLOGICAL: Patient is awake, alert and oriented x3. Cranial nerves 2 through 12 are grossly intact. - Labs CBC & Chem 7: 06/05/18 06:39 06/03/18 23:23 Labs: Abnormal Lab Results - Last 24 Hours (Table) 06/05/18 Range/Units 06:39 WBC 13.0 H (3.8-10.6) k/uL Neutrophils # 10.0 H (1.3-7.7) k/uL Assessment and Plan Plan: 1. Right hip fracture due to traumatic fall. The patient is cleared medically for surgical intervention. Orthopedics is planning for right hip hemiarthroplasty. Continue current pain management. Incentive spirometry to reduce incidence of atelectasis and hospital-acquired pneumonia. DVT prophylaxis with aspirin. 2. Hyperlipidemia not currently on medication, stable. 3. Recurrent depression. Continue escitalopram 12.5 mg daily. 4. Glaucoma. Continue eyedrops. 5. Vitamin D deficiency. Continue supplement. 6. Migraine headaches, stable. 7. Irritable bowel syndrome, stable. 8. DVT prophylaxis to be determined by orthopedics. 9. GI prophylaxis. Pepcid. 10. Active treatment for urinary tract infection. Continue Bactrim for 2 more days to complete course. Discharge plan: Most likely subacute rehab tomorrow Impression and plan of care have been directed as dictated by the signing physician. Jaycee Neely nurse practitioner acting as scribe for signing physician.
[2018-06-06] MEDS: HYDROcodone/APAP 10-325MG 1 EACH TAB PO PRN ×2 (11:50→21:43)
--- NOTE | 2018-06-06 11:59 | P.PN ---
Subjective Progress Note Date: 06/06/18 Principal diagnosis: Right hip fracture Patient is a pleasant 72-year-old female seen at bedside this afternoon. She is postop day #2 from right hip hemiarthroplasty for her right hip fracture. She has some pain at the surgical site as expected. She has some pain in her right knee and anterior lower leg today. She denies numbness or tingling, calf pain, fever, chills, chest pain or shortness of breath. Objective - Vital Signs Vital signs: Vital Signs Temp 98.3 F 06/06/18 07:12 Pulse 85 06/06/18 07:12 Resp 16 06/06/18 07:12 BP 115/66 06/06/18 07:12 Pulse Ox 92 L 06/06/18 07:12 Intake & Output 06/05/18 06/06/18 06/06/18 18:59 06:59 18:59 Intake Total 1000 480 Output Total 600 0 Balance 400 480 0 Intake: Intake, IV Titration 800 Amount Sodium Chloride 0.9% 1, 800 000 ml @ 100 mls/hr IV . Q10H [facility] Rx#:[id number] Oral 480 Other 200 Output: Urine 600 0 Uretheral (Morales) 600 Other: Voiding Method Indwelling Catheter Toilet Bedside Commode # Voids 3 1 1 - Exam Inspection right lower extremity shows benign surgical wound with no evidence of active bleeding or drainage. Motor and sensation is grossly intact throughout the right lower extremity. She has mild pain at the right knee with active full extension and flexion to 90. The knee appears to be ligamentously stable. There is no significant effusion or erythema or deformity. Mild tenderness in the anterior tibia palpation. There is no deformity, erythema or swelling. Calf is soft and nontender. 2+ dorsalis pedis pulse and less than 2 second capillary refill is present. - Constitutional General appearance: Present: no acute distress - Labs CBC & Chem 7: 06/05/18 06:39 06/03/18 23:23 Assessment and Plan (1) Fracture of hip, right, closed Narrative/Plan: We will order x-ray of the right knee as well as the tibia and fibula. Patient will continue with routine postop orthopedic protocol including pain management , wound care, physical therapy, DVT prophylaxis and medical management. She is weightbearing as tolerated. Expect that she will transfer to rehab on Sunday if okay with internal medicine and x-rays are negative Current Visit: Yes Status: Acute Priority: Medium Code(s): S72.001A - FRACTURE OF UNSP PART OF NECK OF RIGHT FEMUR, INIT SNOMED Code(s): 194215289 Time with Patient: Less than 30
--- NOTE | 2018-06-06 14:16 | XR ---
Right leg and right knee HISTORY: Pain 2 views of the right leg on 3 images, 3 views of the right knee submitted Bone mineralization is mildly reduced. There is chondrocalcinosis along the menisci, marginal spurrin g is also present in the knee joint, alignment is maintained. Suprapatellar increased density is comp atible joint effusion. Joint space loss noted especially patellofemoral joint. Soft tissue calcificat ions along the right leg are likely vascular. No fracture or dislocation. There is a plantar calcanea l spur. 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 Probable phleboliths in the soft tissues of the right leg. Suspect osteopenia.
[2018-06-06] MEDS: SENNOSIDES-DOCUSATE SODIUM 1 EACH TAB PO SCH (21:43)
[2018-06-07] MEDS: SODIUM CHLORIDE 0.9% 1,000 ML IV SCH ×3 (00:27→21:27)
[2018-06-07] MEDS: ASPIRIN 325 MG TAB PO SCH ×2 (07:56→20:32)
[2018-06-07] MEDS: SULFAMETHOX-TMP 800-160MG 1 EACH TAB PO SCH ×2 (07:56→20:32)
[2018-06-07] MEDS: MULTIVITAMINS, THERA 1 EACH TAB PO SCH (07:56)
[2018-06-07 08:43] LABS: Basophils # (A) 0.1 k/uL (0-0.2); Basophils % (A) 1 %; Eosinophils # (A) 0.3 k/uL (0-0.7); Eosinophils % (A) 3 %; HCT 36.8 % (34.0-46.0); HGB 11.9 gm/dL (11.4-16.0); Lymphocytes # (A) 3.3 k/uL (1.0-4.8); Lymphocytes % (A) 30 %; MCH 29.2 pg (25.0-35.0); MCHC 32.2 g/dL (31.0-37.0); MCV 90.6 fL (80.0-100.0); Mean Platelet Volume 7.5; Monocytes # (A) 0.4 k/uL (0-1.0); Monocytes % (A) 4 %; Neutrophils # (A) 6.7 k/uL (1.3-7.7); Neutrophils % (A) 62 %; Platelet Count 205 k/uL (150-450); RBC 4.06 m/uL (3.80-5.40); WBC 10.9 k/uL (3.8-10.6)
[2018-06-07] MEDS: HYDROcodone/APAP 10-325MG 1 EACH TAB PO PRN ×2 (11:21→19:09)
--- NOTE | 2018-06-07 12:12 | P.DS ---
Providers Date of admission: 06/04/18 00:29 Expected date of discharge: 06/08/18 Attending physician: Ke Jerez Consults: 06/04/18 00:30 Consult Physician Urgent Consulting Provider: Yohannes Sylvester Consult Reason/Comments: medical mgmt of trauma patient Do you want consulting provider notified?: Yes, Notify in am 06/04/18 09:42 Consult Physician Stat Consulting Provider: Yohannes Sylvester Consult Reason/Comments: pre op clearance Do you want consulting provider notified?: Yes Primary care physician: Clinton Finch - Discharge Diagnosis(es) (1) Fracture of hip, right, closed Patient was admitted to the OR on 06/04/2018 to undergo a right hip hemiarthoplasty. She had suffered a fall at home resulting in a right femoral neck fracture. She underwent the above procedure which she tolerated well without complication. Postoperative hospital course has remained without complication. On day of discharge she is afebrile, vital signs stable, labs within acceptable ranges, tolerating by mouth meds and diet, voiding without difficulty, positive flatus, denies abdominal pain or calf pain, pain is controlled on oral pain medication and has no new complaints. Wound is benign, neurovascular status is intact, calf is soft and nontender, abdomen soft and nontender. Review of systems is negative for numbness, tingling, fever, chills , chest pain, shortness breath, nausea, vomiting, dizziness, headaches, slurred speech or other. Current Visit: Yes Status: Acute Priority: Medium Procedures: Right hip hemiarthroplasty Patient Condition at Discharge: Good Plan - Discharge Summary Discharge Rx Participant: Yes New Discharge Prescriptions: New Acetaminophen Tab [Tylenol] 650 mg PO Q4HR PRN tab PRN Reason: Pain Scale 1 To 5 Aspirin 325 mg PO BID tab Aspirin 325 mg PO BID #60 tab Docusate [Colace] 100 mg PO BID #60 capsule HYDROcodone/APAP 7.5-325MG [Framingham 7.5-325] 1 - 2 each PO Q6HR PRN #56 tab PRN Reason: Pain Continue Latanoprost [Xalatan 0.005%] 1 drop BOTH EYES HS Escitalopram Oxalate 15 mg PO DAILY Timolol Maleate [Timolol Maleate 0.5% Ophth Gel] 1 applic BOTH EYES BID Cholecalciferol [Vitamin D3] 5,000 unit PO DAILY Sulfamethoxazole/Trimethoprim [Bactrim DS 800-160 mg] 1 tab PO BID #0 Discharge Medication List Escitalopram Oxalate 15 mg PO DAILY 03/08/16 [History] Latanoprost [Xalatan 0.005%] 1 drop BOTH EYES HS 03/08/16 [History] Cholecalciferol [Vitamin D3] 5,000 unit PO DAILY 06/04/18 [History] Timolol Maleate [Timolol Maleate 0.5% Ophth Gel] 1 applic BOTH EYES BID [History] Acetaminophen Tab [Tylenol] 650 mg PO Q4HR PRN tab 06/06/18 [Rx] Aspirin 325 mg PO BID tab 06/06/18 [Rx] Sulfamethoxazole/Trimethoprim [Bactrim DS 800-160 mg] 1 tab PO BID #0 06/06/18 [ Rx] Aspirin 325 mg PO BID #60 tab 06/07/18 [Rx] Docusate [Colace] 100 mg PO BID #60 capsule 06/07/18 [Rx] HYDROcodone/APAP 7.5-325MG [Framingham 7.5-325] 1 - 2 each PO Q6HR PRN #56 tab [Rx] Follow up Appointment(s)/Referral(s): Hoda guardado [place], [NON-STAFF] - As Needed Clinton Finch MD [Primary Care Provider] - 1 Week (after discharge from [facility]CF) Ke Jerez MD [STAFF PHYSICIAN] - 06/19/18 1:30 pm Activity/Diet/Wound Care/Special Instructions: Keep wound clean and dry Take meds as directed Follow-up with Dr. Jerez in office Weight bear as tolerated May shower in 3 days if no bleeding Discharge Disposition: TRANSFER TO SNF/ECF
--- NOTE | 2018-06-07 14:49 | P.PN ---
Subjective Progress Note Date: 06/07/18 This is a 72-year-old patient of Dr. Finch with past medical history of hyperlipidemia, migraine headaches, irritable bowel syndrome, recurrent depression, glaucoma. Patient is currently under treatment for urinary tract infection has 4 more days of Bactrim to complete. She gives history that she is normally very active and plays tennis on a regular basis. She was in her bathroom which has a tiled floor and slipped on a rug and approaching her leg by the toilet. She denies having any loss consciousness or syncope, no dizziness prior to the incident. She states she has had a bone density test which she was told was okay in the past. Patient came in by ambulance to [facility] emergency center for evaluation. Pelvic and right hip x-rays showed acute impacted subcapital fracture right femur. Chest x-ray shows no acute card a pulmonary process. Initial blood pressure was elevated, pulse ox 96%, afebrile. White count was 14 , hemoglobin 13.7, creatinine 1. Blood glucose 124. Alkaline phosphatase 137. Urinalysis was negative for infection. Urine drug screen positive for benzodiazepines. EKG is normal sinus rhythm with occasional PVCs. [facility] with plan for surgical intervention. Pain is currently controlled. Patient states that she does have trouble taking morphine or Dilaudid due to nausea but is tolerating fentanyl without nausea. She has a Morales catheter in place. She is scheduled this afternoon for right hip hemiarthroplasty. Patient has been cleared medically for surgical intervention this afternoon. 06/05: Patient has had no postop palpitations. Vital signs are stable, afebrile. White count is at 13, hemoglobin 12.1. Patient is planning on subacute rehab. duplicator punch set up operator/vp digital marketing social media and crm is following. This patient will be ready for discharge by tomorrow. 06/06: Pain is currently controlled. Patient is scheduled for discharge. Patient is cleared medically for discharge. Medication reconciliation reviewed. Ortho to address pain medications. Patient would like to go to [facility] but if bed is not available, she may go to [facility]. 06/07:patient is complaining of pain in the front of her thigh when she stands. 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 Probable phleboliths in the soft tissues of the right leg. Suspect osteopenia. Patient is waiting for a bed at [facility] which will be available tomorrow. all arrangements are in place for patient to be discharged tomorrow to [facility]. Review of Systems All systems: negative Constitutional: Denies chills, Denies fatigue, Denies fever, Denies lethargy, Denies malaise, Denies poor appetite, generalized weakness, Denies weight loss Eyes: denies blurred vision, denies pain Ears, nose, mouth and throat: Denies dysphagia, Denies headache, Denies sore throat, Denies vertigo Cardiovascular: Denies chest pain, Denies decreased exercise tolerance, Denies dyspnea on exertion, Denies edema, Denies leg edema, Denies lightheadedness, Denies shortness of breath, Denies syncope Respiratory: Denies cough, Denies cough with sputum, Denies dyspnea, Denies excessive sputum, Denies hemoptysis, Denies home oxygen, Denies wheezing Gastrointestinal: Denies abdominal pain, Denies constipation, Denies diarrhea, Denies loss of appetite, Denies melena, Denies nausea, Denies vomiting Genitourinary: Denies dysuria, Denies hematuria, Denies urinary frequency Musculoskeletal: Denies frequent falls, Denies gait dysfunction, Denies muscle weakness, Denies myalgias, Denies neck pain, Denies neck stiffness Musculoskeletal: right: hip pain,right thigh pain Integumentary: Denies pruritus, Denies rash, Right hip wound Neurological: Denies aphasia, Denies change in mentation, Denies change in speech, Denies confusion, Denies gait dysfunction, Denies head injury, Denies headaches, Denies memory loss, Denies numbness, Denies seizures, Denies syncope , Denies weakness Psychiatric: Denies anxiety, Denies depression Endocrine: Denies fatigue, Denies weight change Objective - Vital Signs Vital signs: Vital Signs Temp 98.6 F 06/07/18 08:00 Pulse 82 06/07/18 08:00 Resp 16 06/07/18 08:00 BP 126/75 06/07/18 08:00 Pulse Ox 96 06/07/18 08:00 Intake & Output 06/06/18 06/07/18 06/07/18 18:59 06:59 18:59 Intake Total 600 150 Output Total 0 Balance 600 150 Intake: Oral 600 150 Output: Urine 0 Other: Voiding Method Toilet Toilet Bedside Commode Bedside Commode # Voids 2 1 - Exam Gen: This is a 72-year-old female. Patient is in a recliner in her room and appears to be comfortable. HEENT: Head is atraumatic, normocephalic. Pupils equal, round. Sclerae is anicteric. NECK: Supple. No JVD. No lymphadenopathy. No thyromegaly. LUNGS: Clear to auscultation. No wheezes or rhonchi. No intercostal retractions. HEART: Regular rate and rhythm. No murmur. ABDOMEN: Soft. Bowel sounds are present. No masses. No tenderness. EXTREMITIES: No pedal edema. No calf tenderness. Small dressing in place of the right hip with no breakthrough bleeding or drainage.full range of motion to right knee NEUROLOGICAL: Patient is awake, alert and oriented x3. Cranial nerves 2 through 12 are grossly intact. - Labs CBC & Chem 7: 06/07/18 08:00 06/03/18 23:23 Labs: Abnormal Lab Results - Last 24 Hours (Table) 06/07/18 Range/Units 08:00 WBC 10.9 H (3.8-10.6) k/uL Assessment and Plan Plan: 1. Right hip fracture due to traumatic fall. The patient is cleared medically for surgical intervention. Orthopedics is planning for right hip hemiarthroplasty. Continue current pain management. Incentive spirometry to reduce incidence of atelectasis and hospital-acquired pneumonia. DVT prophylaxis with aspirin. 2. Hyperlipidemia not currently on medication, stable. 3. Recurrent depression. Continue escitalopram 12.5 mg daily. 4. Glaucoma. Continue eyedrops. 5. Vitamin D deficiency. Continue supplement. 6. Migraine headaches, stable. 7. Irritable bowel syndrome, stable. 8. DVT prophylaxis to be determined by orthopedics. 9. GI prophylaxis. Pepcid. 10. Active treatment for urinary tract infection. Continue Bactrim for 1 more day to complete course. Discharge plan: [facility] on Sunday. Impression and plan of care have been directed as dictated by the signing physician. Jaycee Neely nurse practitioner acting as scribe for signing physician.
[2018-06-07] MEDS: SENNOSIDES-DOCUSATE SODIUM 1 EACH TAB PO SCH (20:32)
[2018-06-08 00:57] VITALS: RESP 16
[2018-06-08] MEDS: SODIUM CHLORIDE 0.9% 1,000 ML IV SCH (05:58)
[2018-06-08] MEDS: HYDROcodone/APAP 10-325MG 1 EACH TAB PO PRN ×2 (06:16→14:22)
[2018-06-08] MEDS: MULTIVITAMINS, THERA 1 EACH TAB PO SCH (07:45)
[2018-06-08] MEDS: ASPIRIN 325 MG TAB PO SCH (07:45)
[2018-06-08 08:13] VITALS: BP 115/64; PULSE 96; TEMP 98.4
== END 2018-06-08 15:16 | DRG 470 ==
LOC: EC 22:40 → 4SSUR 06-04 00:29
PROVIDERS: ADMIT Orthopaedic Surgery Sports Medicine; ATTEND Orthopaedic Surgery Sports Medicine
PROC: 0SRR01A Replacement of Right Hip Joint, Femoral Surface with Metal Synthetic Substitute, Uncemented, Open Approach (ICD-10-PCS; principal; 2018-06-04 08:55)
DX: S72.011A Unspecified intracapsular fracture of right femur, initial encounter for closed fracture (principal); F33.9 Major depressive disorder, recurrent, unspecified; N39.0 Urinary tract infection, site not specified; E78.5 Hyperlipidemia, unspecified; H40.9 Unspecified glaucoma; I49.3 Ventricular premature depolarization; K58.9 Irritable bowel syndrome, unspecified; G43.909 Migraine, unspecified, not intractable, without status migrainosus; R03.0 Elevated blood-pressure reading, without diagnosis of hypertension; E55.9 Vitamin D deficiency, unspecified; M17.11 Unilateral primary osteoarthritis, right knee; I87.8 Other specified disorders of veins; Z90.710 Acquired absence of both cervix and uterus; Z79.899 Other long term (current) drug therapy; Z91.041 Radiographic dye allergy status; Z82.0 Family history of epilepsy and other diseases of the nervous system; Z82.49 Family history of ischemic heart disease and other diseases of the circulatory system; W01.0XXA Fall on same level from slipping, tripping and stumbling without subsequent striking against object, initial encounter; Y92.002 Bathroom of unspecified non-institutional (private) residence as the place of occurrence of the external cause
CPT/HCPCS: 36415; 71045; 72170; 73501; 73502; 80053; 80306; 80320; 81003; 82550; 82553; 84484; 85025; 85610; 85730; 86850; 86900; 86901; 88305; 88311; 93005; 96374; 96375; 99285

== ENCOUNTER → 2018-10-23 | Outpatient (CLI) | payer MEDICARE, OTHER ==
--- NOTE | 2018-10-23 15:30 | US ---
EXAMINATION TYPE: US thyroid st tissue head/neck DATE OF EXAM: 10/23/2018 COMPARISON: US 2018 CLINICAL HISTORY: E04.1 Thyroid Nodule. Follow up thyroid nodules, history of FNA GLAND SIZE: Right Lobe: 4.6 x 2.3 x 2.5 cm Overall Parenchyma: homogenous Left Lobe: 4.3 x 1.6 x 1.2 cm Overall Parenchyma: homogeneous Isthmus Thickness: 0.2 cm NODULES RIGHT: # of nodules measured on right: 2 1. 1.0 X 1.0 x 0.7 cm isoechoic solid nodule at the upper pole with well-defined margins. This nodu le is taller than wide and shows intranodular vascularity. Prior size: 1.1 x 0.9 x 0.8 cm 2. 2.9 X 2.4 x 2.5 cm isoechoic mixed nodule at the mid pole with well-defined margins. This nodule is taller than wide and shows intranodular vascularity. Prior size: 2.9 x 2.4 x 2.1 cm LEFT: # of nodules measured on left: 1 1. 1.3 X 0.7 x 1.0 cm hypoechoic solid nodule at the mid pole with well-defined margins. This nodul e is wider than tall and shows intranodular vascularity. Prior size: 1.2 x 0.7 x 0.8 cm ISTHMUS: # of nodules measured in the isthmus: 0 Bilateral neck scanned, no evidence of lymphadenopathy. IMPRESSION: Similar size of the bilateral thyroid nodules the largest on the right measuring 2.9 cm (previously b iopsied on 12/04/2017). Continued surveillance is recommended for the two smaller nodules.
== END ==
LOC: RADUSWWP 14:39
PROVIDERS: ATTEND Otolaryngology
DX: E04.2 Nontoxic multinodular goiter (principal)
CPT/HCPCS: 76536

== ENCOUNTER → 2018-10-25 | Outpatient (CLI) | payer MEDICARE, OTHER ==
--- NOTE | 2018-10-27 16:21 | MR ---
EXAMINATION TYPE: MR brain/orbits wo/w con DATE OF EXAM: 10/25/2018 COMPARISON: None HISTORY: Papilledema TECHNIQUE: Multiplanar, multisequence images of the brain and brainstem is performed without and with IV contras t, utilizing 6 mL intravenous Gadavist . FINDINGS: There is cerebral cortical atrophy. There is no mass effect nor midline shift. There is no sign of intracranial hemorrhage. There are scattered high signal white matter foci in both cerebral h emispheres and more in both frontal lobes in the subcortical region. The total number is approximatel y 10 and these measure mostly less than 4 mm. The brainstem is intact. Sella turcica appears normal. There is slight thinning of the corpus callosum. There is mucosal thickening in the sphenoid sinus. T here is no evidence of a posterior fossa mass. Internal auditory canals appear normal. There is no hy drocephalus. There is no evidence of retro-orbital mass. The globes are symmetric. Contrast images show no pathologic enhancement. There is normal contrast opacification of the venous sinuses. There is no increased fluid optic nerve sheaths bilaterally. IMPRESSION: Cerebral atrophy. No acute intracranial abnormality. Sphenoid sinusitis. No evidence of optic nerve edema. High signal white matter foci probably related to chronic small vessel ischemia. This is not a patter n of typical demyelinating disease.
== END ==
LOC: RADMRIMAIN 21:04
PROVIDERS: ATTEND Ophthalmology
DX: G31.9 Degenerative disease of nervous system, unspecified (principal); R90.89 Other abnormal findings on diagnostic imaging of central nervous system; H47.11 Papilledema associated with increased intracranial pressure; Z91.041 Radiographic dye allergy status; Z96.649 Presence of unspecified artificial hip joint
CPT/HCPCS: 70543; 70553; A9585

== ENCOUNTER → 2019-09-04 | Outpatient (CLI) | payer MEDICARE, OTHER ==
--- NOTE | 2019-09-04 09:51 | MR ---
EXAMINATION TYPE: MR angio head wo con DATE OF EXAM: 09/04/2019 COMPARISON: NONE HISTORY: Disc edema, increased intracranial pressure TECHNIQUE: Utilizing 3-D [id number] intracranial MRA of the venetie ira of [place] was performed. FINDINGS: The vertebrobasilar and carotid systems are patent. There is no sizable aneurysm or vascular malform ation. Optic nerves are not well seen MRA [place] ir[place] of [place]. IMPRESSION: 1. No evidence of vascular malformation or sizable aneurysm.
--- NOTE | 2019-09-04 13:01 | MR ---
EXAMINATION TYPE: MR brain/orbits wo/w con DATE OF EXAM: 09/04/2019 COMPARISON: 10/25/2018 HISTORY: Disc edema TECHNIQUE: Multiplanar, multisequence images of the brain and brainstem is performed without and with IV contras t, utilizing 7 mL intravenous Gadavist . FINDINGS: Diffusion weighted images demonstrate no evidence of a recent infarct or other diffusion ab normality. The optic nerves are symmetric in size. There is a trace amount of fluid surrounding the optic nerves . There is no orbital flattening. Optic chiasm has a normal appearance. Craniocervical junction maint ained. There is no significant tortuosity of the optic nerves. No pathologic enhancement. Sella turci ca has a normal appearance. The globes are symmetric. Extraocular muscles are symmetric in appearance. There is no evidence of in traconal or extraconal enhancing mass. Extensive changes of chronic sinusitis. Cavernous sinus enhances normally. Changes of right mastoiditis are noted. Areas of abnormal signal involving the bhavin suggests small ar eas of remote infarction. No midline shift or mass effect. Mild generalized degenerative change. Ther e are several focal areas of abnormal signal in the white matter all measuring less than 5 mm. Findin gs nonspecific but most typical remote microvascular ischemia. IMPRESSION: 1. Optic nerves are symmetric in size with no pathologic enhancement. There is a trace amount fluid s urrounding the optic nerve sheaths which could be physiologic. No orbital flattening. Mild papilledem a not excluded correlate with ophthalmologic exam. 2. No evidence of intraorbital mass. 3. Mild degenerative and nonspecific white matter changes most typical of remote ischemic change. 4. Changes of chronic sinusitis and right-sided mastoiditis.
== END | disposition home or self-care (01) ==
LOC: RADMRIMAIN 08:51
PROVIDERS: ATTEND Ophthalmology
DX: H47.11 Papilledema associated with increased intracranial pressure (principal); R90.89 Other abnormal findings on diagnostic imaging of central nervous system
CPT/HCPCS: 70544; 70543; 70553; A9585

== ENCOUNTER 2019-10-27 19:03 | Observation (INO) | payer MEDICARE, OTHER ==
[2019-10-27] MEDS ORDERED: ASPIRIN 81 MG PO STA (19:25)
--- NOTE | 2019-10-27 19:46 | ED ---
General Adult HPI - General Chief complaint: Chest Pain Stated complaint: Chest pain Time Seen by Provider: 10/27/19 19:17 Source: patient Mode of arrival: ambulatory Limitations: no limitations - History of Present Illness Initial comments: 74-year-old female patient presents to the emergency department today for evaluation of left-sided chest pain. Patient states she had mild pain yesterday which did resolve. States that the pain started again today a couple of hours ago. States that the pain did radiate up into her neck area. She felt a flutte ring sensation in her chest. States with this she was short of breath and nauseated. States she was also lightheaded. Denies history of similar symptoms. She denies radiation of pain through to her back. Denies any abdominal pain. Patient states she does not take any medications currently. De nies alcohol or drug use. Patient denies any recent rash, fever, chills, cough, diarrhea, constipation, back pain, numbness, tingling, weakness, hematuria, dysuria, urinary urgency, urinary frequency, headache, visual changes, or any other complaints. - Related Data Home Medications Medication Instructions Recorded Confirmed Escitalopram Oxalate 15 mg PO DAILY 03/08/16 10/27/19 Latanoprost [Xalatan 0.005%] 1 drop BOTH EYES HS 03/08/16 10/27/19 Cholecalciferol [Vitamin D3 (25 5,000 unit PO DAILY 06/04/18 10/27/19 Mcg = 1000 Iu)] Brimonidine Tartrate [Alphagan P 1 drops BOTH EYES BID 10/27/19 10/27/19 0.2% Ophth Soln] Dorzolamide 2% [Trusopt 2%] 1 drops BOTH EYES BID 10/27/19 10/27/19 LORazepam [Ativan] 1 mg PO HS 10/27/19 10/27/19 Ubidecarenone [Co Q-10] 100 mg PO DAILY 10/27/19 10/27/19 Allergies Allergy/AdvReac Type Severity Reaction Status Date / Time hydromorphone [From Dilaudid] AdvReac Nausea & Verified 10/27/19 22:04 Vomiting iodine AdvReac Anaphylaxis Verified 10/27/19 22:04 Review of Systems ROS Statement: Those systems with pertinent positive or pertinent negative responses have been documented in the HPI. ROS Other: All systems not noted in ROS Statement are negative. Past Medical History Past Medical History: Hyperlipidemia Additional Past Medical History / Comment(s): neck injury - fx, glaucoma, migraine headaches, irritable bowel syndrome History of Any Multi-Drug Resistant Organisms: None Reported Past Surgical History: Bladder Surgery, Hysterectomy, Orthopedic Surgery Additional Past Surgical History / Comment(s): thyroid, cystocele, rectocele, breast biopsy Left breast Past Anesthesia/Blood Transfusion Reactions: Postoperative Nausea & Vomiting (PONV) Past Psychological History: Anxiety, Depression Smoking Status: Never smoker Past Alcohol Use History: Occasional Past Drug Use History: None Reported - Past Family History Mother Family Medical History: Congestive Heart Failure (CHF) Additional Family Medical History / Comment(s): parkinsons. Mother at age 86 from heart failure with history of dementia. Father Family Medical History: Hyperlipidemia, Pneumonia Additional Family Medical History / Comment(s): Father at age 90 after bladder was perforated and suffered pneumonia at the time of his . Sister(s) Additional Family Medical History / Comment(s): it was just straighten out again patient has 1 sister with no major medical problems. Patient has one twin brother that at 2 weeks of age. Patient has one son that 9 years ago in a motor vehicle accident. Patient's one daughter with no major medical problems. General Exam Limitations: no limitations General appearance: alert, in no apparent distress, other (This is a well- developed, well-nourished elderly female patient in no acute distress. Vital signs upon presentation are temperature 97.7F, pulse 89, respirations 18, blood pressure 123/68, pulse ox 99% on room air.) ENT exam: Present: normal exam, normal oropharynx, mucous membranes moist Respiratory exam: Present: normal lung sounds bilaterally. Absent: respiratory distress, wheezes, rales, rhonchi, stridor Cardiovascular Exam: Present: regular rate, normal rhythm, normal heart sounds. Absent: systolic murmur, diastolic murmur, rubs, gallop, clicks GI/Abdominal exam: Present: soft, normal bowel sounds. Absent: distended, t enderness, guarding, rebound, rigid Neurological exam: Present: alert, oriented X3, CN II-XII intact Psychiatric exam: Present: normal affect, normal mood Skin exam: Present: warm, dry, intact, normal color. Absent: rash Course Vital Signs 10/27/19 10/27/19 10/27/19 19:08 19:30 20:00 Temperature 97.7 F Pulse Rate 89 78 Pulse Rate [ 81 Rehab Trainer ] Respiratory 18 18 Rate Blood Pressure 123/68 127/78 O2 Sat by Pulse 99 98 Oximetry 10/27/19 10/27/19 21:00 22:54 Temperature 97.5 F L Pulse Rate 80 82 Pulse Rate [ Rehab Trainer ] Respiratory 18 16 Rate Blood Pressure 125/68 120/70 O2 Sat by Pulse 98 98 Oximetry EKG Findings - EKG Comments: EKG Findings:: EKG obtained at 1925 shows normal sinus rhythm with a ventricular rate of 68, TN interval 168, QRS duration 80, QTc 412, QTC 438. There is no evidence of ST elevation or depression. Medical Decision Making - Medical Decision Making 72-year-old female patient presented to the emergency department today for evaluation of chest pain. Patient has associated symptoms including shortness of breath, nausea, and lightheadedness. Physical examination was unremarkable. Initial lab testing showed a negative troponin. EKG showed normal sinus with no ST elevation or depression. Given patient's symptoms and timing of onset we will admit to the hospital for repeat troponins and evaluation by cardiology. Patient was updated regarding all findings, results, and plan, she is agreeable. - Lab Data Result diagrams: 10/27/19 19:35 10/27/19 19:35 Lab Results 10/27/19 10/27/19 10/27/19 Range/Units 19:35 19:35 19:35 WBC 10.2 (3.8-10.6) k/uL RBC 4.78 (3.80-5.40) m/uL Hgb 14.1 (11.4-16.0) gm/dL Hct 43.3 (34.0-46.0) % MCV 90.7 (80.0-100.0) fL MCH 29.5 (25.0-35.0) pg MCHC 32.6 (31.0-37.0) g/dL RDW 12.5 (11.5-15.5) % Plt Count 272 (150-450) k/uL Neutrophils % 80 % Lymphocytes % 15 % Monocytes % 3 % Eosinophils % 1 % Basophils % 1 % Neutrophils # 8.2 H (1.3-7.7) k/uL Lymphocytes # 1.5 (1.0-4.8) k/uL Monocytes # 0.3 (0-1.0) k/uL Eosinophils # 0.1 (0-0.7) k/uL Basophils # 0.1 (0-0.2) k/uL PT 9.7 (9.0-12.0) sec INR 0.9 (<1.2) APTT 20.5 L (22.0-30.0) sec Sodium 139 (137-145) mmol/L Potassium 4.5 (3.5-5.1) mmol/L Chloride 100 (98-107) mmol/L Carbon Dioxide 29 (22-30) mmol/L Anion Gap 10 mmol/L BUN 26 H (7-17) mg/dL Creatinine 1.06 H (0.52-1.04) mg/dL Est GFR (CKD-EPI)AfAm 61 (>60 ml/min/1.73 sqM) Est GFR (CKD-EPI)NonAf 53 (>60 ml/min/1.73 sqM) Glucose 149 H (74-99) mg/dL Calcium 9.7 (8.4-10.2) mg/dL Magnesium 2.1 (1.6-2.3) mg/dL Total Bilirubin 0.4 (0.2-1.3) mg/dL AST 26 (14-36) U/L ALT 17 (4-34) U/L Alkaline Phosphatase 81 (38-126) U/L Troponin I (0.000-0.034) ng/mL Total Protein 7.8 (6.3-8.2) g/dL Albumin 4.5 (3.5-5.0) g/dL Lipase 107 (23-300) U/L 10/27/19 Range/Units 19:35 WBC (3.8-10.6) k/uL RBC (3.80-5.40) m/uL Hgb (11.4-16.0) gm/dL Hct (34.0-46.0) % MCV (80.0-100.0) fL MCH (25.0-35.0) pg MCHC (31.0-37.0) g/dL RDW (11.5-15.5) % Plt Count (150-450) k/uL Neutrophils % % Lymphocytes % % Monocytes % % Eosinophils % % Basophils % % Neutrophils # (1.3-7.7) k/uL Lymphocytes # (1.0-4.8) k/uL Monocytes # (0-1.0) k/uL Eosinophils # (0-0.7) k/uL Basophils # (0-0.2) k/uL PT (9.0-12.0) sec INR (<1.2) APTT (22.0-30.0) sec Sodium (137-145) mmol/L Potassium (3.5-5.1) mmol/L Chloride (98-107) mmol/L Carbon Dioxide (22-30) mmol/L Anion Gap mmol/L BUN (7-17) mg/dL Creatinine (0.52-1.04) mg/dL Est GFR (CKD-EPI)AfAm (>60 ml/min/1.73 sqM) Est GFR (CKD-EPI)NonAf (>60 ml/min/1.73 sqM) Glucose (74-99) mg/dL Calcium (8.4-10.2) mg/dL Magnesium (1.6-2.3) mg/dL Total Bilirubin (0.2-1.3) mg/dL AST (14-36) U/L ALT (4-34) U/L Alkaline Phosphatase (38-126) U/L Troponin I <0.012 (0.000-0.034) ng/mL Total Protein (6.3-8.2) g/dL Albumin (3.5-5.0) g/dL Lipase (23-300) U/L - Radiology Data Radiology results: report reviewed, image reviewed Two-view x-ray of the chest is obtained. Report was reviewed in its entirety. Impression by Dr. Mccarthy shows no active cardiopulmonary disease. Normal heart. No change. Disposition Clinical Impression: Chest pain Disposition: ADMITTED IP TO THIS [facility] Condition: Serious Decision to Admit Reason: Admit from EC Decision Date: 10/27/19 Decision Time: 21:32
--- NOTE | 2019-10-27 20:16 | XR ---
EXAMINATION TYPE: XR chest 2V DATE OF EXAM: 10/27/2019 COMPARISON: 06/04/2018 HISTORY: Fall. Hip pain TECHNIQUE: FINDINGS: Heart is normal. Lungs are clear of consolidation. There are no hilar masses. Bony thorax i s intact. Pulmonary vascularity is normal. There are chest leads. IMPRESSION: No active cardiopulmonary disease. Normal heart. No change.
[2019-10-27 20:18] LABS: Basophils # (A) 0.1 k/uL (0-0.2); Basophils % (A) 1 %; Eosinophils # (A) 0.1 k/uL (0-0.7); Eosinophils % (A) 1 %; HCT 43.3 % (34.0-46.0); HGB 14.1 gm/dL (11.4-16.0); Lymphocytes # (A) 1.5 k/uL (1.0-4.8); Lymphocytes % (A) 15 %; MCH 29.5 pg (25.0-35.0); MCHC 32.6 g/dL (31.0-37.0); MCV 90.7 fL (80.0-100.0); Mean Platelet Volume 7.8; Monocytes # (A) 0.3 k/uL (0-1.0); Monocytes % (A) 3 %; Neutrophils # (A) 8.2 k/uL (1.3-7.7); Neutrophils % (A) 80 %; Platelet Count 272 k/uL (150-450); RBC 4.78 m/uL (3.80-5.40); RDW 12.5 % (11.5-15.5); WBC 10.2 k/uL (3.8-10.6)
[2019-10-27 20:25] LABS: Albumin 4.5 g/dL (3.5-5.0); Calcium 9.7 mg/dL (8.4-10.2); Magnesium 2.1 mg/dL (1.6-2.3); Potassium 4.5 mmol/L (3.5-5.1); Total Bilirubin 0.4 mg/dL (0.2-1.3); Total Protein 7.8 g/dL (6.3-8.2)
[2019-10-27 20:45] LABS: INR 0.9 (<1.2); Prothrombin Time 9.7 sec (9.0-12.0)
[2019-10-27 21:00] LABS: Partial Thromboplastin Time 20.5 sec (22.0-30.0)
[2019-10-27] MEDS ORDERED: NITROGLYCERIN SL TABS 0.4 MG TAB SUBLINGUAL PRN (21:28)
[2019-10-27] MEDS ORDERED: LORazepam 1 MG TAB PO SCH (23:45)
[2019-10-28] MEDS: BRIMONIDINE TARTRATE 0.2% DROPS 5 ML BTL BOTH EYES SCH ×2 (00:21→08:51)
[2019-10-28] MEDS: LATANOPROST 0.005% OPHTH DROPS 2.5 ML BTL BOTH EYES SCH ×2 (00:21→00:23)
[2019-10-28] MEDS: DORZOLAMIDE HCL 2% DROPS 10 ML BTL BOTH EYES SCH ×2 (00:21→08:51)
[2019-10-28 07:56] LABS: Cholesterol 266 mg/dL (<200); HDL Cholesterol 56 mg/dL (40-60); LDL Cholesterol,Calculated 186 mg/dL (0-99); Triglycerides 120 mg/dL (<150)
[2019-10-28 08:50] VITALS: BP 123/64; PULSE 66; RESP 16; TEMP 97.4
[2019-10-28] MEDS ORDERED: NON FORMULARY DRUG (Ubidecarenone [Co Q-10] 100 MG) PO SCH (09:00)
[2019-10-28] MEDS ORDERED: CHOLECALCIFEROL 1,000 UNIT TAB PO SCH (09:00)
[2019-10-28] MEDS ORDERED: LATANOPROST 0.005% OPHTH DROPS 2.5 ML BTL BOTH EYES SCH (09:00)
[2019-10-28] MEDS ORDERED: ASPIRIN 325 MG TAB PO SCH (09:00)
[2019-10-28] MEDS ORDERED: ESCITALOPRAM 5 MG TAB PO SCH (09:00)
[2019-10-28] MEDS ORDERED: DOBUTamine DRIP for NUC MED 500 MG in DEXTROSE/WATER 1 250ML.BAG IV ONE (09:38)
--- NOTE | 2019-10-28 10:50 | P.STRESS ---
- Stress Test Note Stress Test Results/Findings: Exam Performed: stress echo exercise Exam Date: 10/28/19 Reason for Exam: Chest Pain Height: 6 ft Weight: 70.2 kg Protocol: Alfonzo Stage: 2 Duration of Exercise: 6:10 Resting Heart Rate: 59 Resting Blood Pressure: 131/59 Maximum Achieved Heart Rate: 137 Maximum Achieved Blood Pressure: 182/61 85% PMHR: 126 100% PMHR: 148 METS: 7.1 Technologist Comment: Stress Test Results/Findings: This is a 74-year-old female with history of hypercholesterolemia and complaints of chest pain being evaluated for cardiac status. Baseline EKG showed sinus rhythm with normal NJ interval and QRS duration with mild nonspecific ST-T changes. Patient walks on the Alfonzo protocol for 6 minutes and 10 seconds achieving a maximal heart rate of 137 with a blood pressure 179/73. EKGs taken during and after exercise showed mild nonspecific changes and not specific for ischemia. Echo data: Baseline echo images show normal wall motion and thickening. Exercise echo images showed a paced wall motion and thickening in all the segments. Final impression: #1. Nondiagnostic stress test because of baseline EKG changes #2. Negative stress echo.
[2019-10-28] MEDS ORDERED: SODIUM CHLORIDE 0.9% 1,000 ML IV ONE (11:26)
--- NOTE | 2019-10-28 12:00 | P.DS ---
Providers Date of admission: 10/27/19 21:15 Attending physician: Titi Hussein Consults: 10/27/19 21:29 Consult Physician Urgent Consulting Provider: [facility] Consult Reason/Comments: Chest Pain Do you want consulting provider notified?: Yes Primary care physician: Stated None Hospital Course: As mentioned in HPI Patient Condition at Discharge: Serious Plan - Discharge Summary Discharge Rx Participant: Yes New Discharge Prescriptions: New Atorvastatin [Lipitor] 20 mg PO HS #30 tab Continue Latanoprost [Xalatan 0.005%] 1 drop BOTH EYES HS Escitalopram Oxalate 15 mg PO DAILY Cholecalciferol [Vitamin D3 (25 Mcg = 1000 Iu)] 5,000 unit PO DAILY LORazepam [Ativan] 1 mg PO HS Dorzolamide 2% [Trusopt 2%] 1 drops BOTH EYES BID Brimonidine Tartrate [Alphagan P 0.2% Ophth Soln] 1 drops BOTH EYES BID Ubidecarenone [Co Q-10] 100 mg PO DAILY Discharge Medication List Escitalopram Oxalate 15 mg PO DAILY 03/08/16 [History] Latanoprost [Xalatan 0.005%] 1 drop BOTH EYES HS 03/08/16 [History] Cholecalciferol [Vitamin D3 (25 Mcg = 1000 Iu)] 5,000 unit PO DAILY 06/04/18 [History] Brimonidine Tartrate [Alphagan P 0.2% Ophth Soln] 1 drops BOTH EYES BID 10/27/19 [History] Dorzolamide 2% [Trusopt 2%] 1 drops BOTH EYES BID 10/27/19 [History] LORazepam [Ativan] 1 mg PO HS 10/27/19 [History] Ubidecarenone [Co Q-10] 100 mg PO DAILY 10/27/19 [History] Atorvastatin [Lipitor] 20 mg PO HS #30 tab 10/28/19 [Rx] Follow up Appointment(s)/Referral(s): Jj Guerrero MD [STAFF PHYSICIAN] - 2 Weeks (follow up with Dr. Guerrero/Martina Ireland/Delia Ogden in 2 weeks) Ana Duggan MD [STAFF PHYSICIAN] - 1 Week Patient Instructions/Handouts: Acute Coronary Syndrome (DC)
--- NOTE | 2019-10-28 12:00 | P.HPIM ---
History of Present Illness 74-year-old pleasant female came in with compensative left-sided chest pain which started yesterday while she is walking her diabetes as well as some lightheadedness pain only lasted for a few minutes. Patient may became bit nausea needed as well patient denied and diaphoresis patient chest pain is not related to food AP like muscle spasms patient pain is spasmodic [id number] in severity nonradiating. Patient has a negative troponin's EKGs showed nonspecific ST-T wave changes pain is nonpleuritic patient had couple episodes of cough, patient has a coronavirus PCR testing which was negative. Chest x-ray did not show any pneumonic process. Patient was ruled out acute current syndromes after which patient underwent stress test which is a stress echo which his negative for any inducible ischemia. Patient has mildly elevated the abdomen appears to be mildly clinically dehydrated patient will be given a bolus of IV fluids after which patient will be discharged. Patient chest pain appears to be musculoskeletal in nature which resolved at this time which only lasted for a few minutes yesterday. Patient is also found to have hyperlipidemia for which patient will be discharged on atorvastatin Review of Systems REVIEW OF SYSTEMS: CONSTITUTIONAL: No fever, no malaise, no fatigue. HEENT: No recent visual problems or hearing problems. Denied any sore throat. CARDIOVASCULAR: No orthopnea, PND, no palpitations, no syncope. PULMONARY: No shortness of breath, no cough, no hemoptysis. GASTROINTESTINAL: No diarrhea, no nausea, no vomiting, no abdominal pain. NEUROLOGICAL: No headaches, no weakness, no numbness. HEMATOLOGICAL: Denies any bleeding or petechiae. GENITOURINARY: Denies any burning micturition, frequency, or urgency. MUSCULOSKELETAL/RHEUMATOLOGICAL: Denies any joint pain, swelling, or any muscle pain. ENDOCRINE: Denies any polyuria or polydipsia. The rest of the 14-point review of systems is negative. Past Medical History Past Medical History: Hyperlipidemia Additional Past Medical History / Comment(s): neck injury - fx, glaucoma, migraine headaches, irritable bowel syndrome History of Any Multi-Drug Resistant Organisms: None Reported Past Surgical History: Bladder Surgery, Hysterectomy, Orthopedic Surgery Additional Past Surgical History / Comment(s): thyroid, cystocele, rectocele, breast biopsy Left breast Past Anesthesia/Blood Transfusion Reactions: Postoperative Nausea & Vomiting (PONV) Past Psychological History: Anxiety, Depression Smoking Status: Never smoker Past Alcohol Use History: Occasional Past Drug Use History: None Reported - Past Family History Mother Family Medical History: Congestive Heart Failure (CHF) Additional Family Medical History / Comment(s): parkinsons. Mother at age 86 from heart failure with history of dementia. Father Family Medical History: Hyperlipidemia, Pneumonia Additional Family Medical History / Comment(s): Father at age 90 after bladder was perforated and suffered pneumonia at the time of his . Sister(s) Additional Family Medical History / Comment(s): it was just straighten out again patient has 1 sister with no major medical problems. Patient has one twin brother that at 2 weeks of age. Patient has one son that 9 years ago in a motor vehicle accident. Patient's one daughter with no major medical problems. Medications and Allergies Home Medications Medication Instructions Recorded Confirmed Type Escitalopram Oxalate 15 mg PO DAILY 03/08/16 10/27/19 History Latanoprost [Xalatan 0.005%] 1 drop BOTH EYES HS 03/08/16 10/27/19 History Cholecalciferol [Vitamin D3 (25 5,000 unit PO DAILY 06/04/18 10/27/19 History Mcg = 1000 Iu)] Brimonidine Tartrate [Alphagan P 1 drops BOTH EYES BID 10/27/19 10/27/19 History 0.2% Ophth Soln] Dorzolamide 2% [Trusopt 2%] 1 drops BOTH EYES BID 10/27/19 10/27/19 History LORazepam [Ativan] 1 mg PO HS 10/27/19 10/27/19 History Ubidecarenone [Co Q-10] 100 mg PO DAILY 10/27/19 10/27/19 History Atorvastatin [Lipitor] 20 mg PO HS #30 tab 10/28/19 Rx Allergies Allergy/AdvReac Type Severity Reaction Status Date / Time hydromorphone [From Dilaudid] AdvReac Nausea & Verified 10/27/19 22:04 Vomiting iodine AdvReac Anaphylaxis Verified 10/27/19 22:04 Physical Exam Vitals: Vital Signs Temp Pulse Pulse Resp BP BP Pulse Ox 10/28/19 08:00 97.4 F L 66 16 123/64 98 10/28/19 04:00 98.1 F 71 18 138/60 100 10/27/19 23:57 98.1 F 67 18 127/69 96 10/27/19 22:54 97.5 F L 82 16 120/70 98 10/27/19 21:00 80 18 125/68 98 10/27/19 20:00 78 18 127/78 98 10/27/19 19:30 81 10/27/19 19:08 97.7 F 89 18 123/68 99 Intake and Output 10/27/19 10/28/19 10/28/19 22:59 06:59 14:59 Other: # Voids 0 Weight 72.575 kg 70.2 kg 70.2 kg PHYSICAL EXAMINATION: GENERAL: The patient is alert and oriented x3, not in any acute distress. Well developed, well nourished. HEENT: Pupils are round and equally reacting to light. EOMI. No scleral icterus. No conjunctival pallor. Normocephalic, atraumatic. No pharyngeal erythema. No thyromegaly. CARDIOVASCULAR: S1 and S2 present. No murmurs, rubs, or gallops. PULMONARY: Chest is clear to auscultation, no wheezing or crackles. ABDOMEN: Soft, nontender, nondistended, normoactive bowel sounds. No palpable organomegaly. MUSCULOSKELETAL: No joint swelling or deformity. EXTREMITIES: No cyanosis, clubbing, or pedal edema. NEUROLOGICAL: Gross neurological examination did not reveal any focal deficits. SKIN: No rashes. Results CBC & Chem 7: 10/27/19 19:35 10/27/19 19:35 Labs: Abnormal Lab Results - Last 24 Hours (Table) 10/27/19 10/27/19 10/27/19 Range/Units 19:35 19:35 19:35 Neutrophils # 8.2 H (1.3-7.7) k/uL APTT 20.5 L (22.0-30.0) sec BUN 26 H (7-17) mg/dL Creatinine 1.06 H (0.52-1.04) mg/dL Glucose 149 H (74-99) mg/dL Cholesterol (<200) mg/dL LDL Cholesterol, Calc (0-99) mg/dL 10/28/19 Range/Units 07:12 Neutrophils # (1.3-7.7) k/uL APTT (22.0-30.0) sec BUN (7-17) mg/dL Creatinine (0.52-1.04) mg/dL Glucose (74-99) mg/dL Cholesterol 266 H (<200) mg/dL LDL Cholesterol, Calc 186 H (0-99) mg/dL Thrombosis Risk Factor Assmnt - Choose All That Apply Each Risk Factor Represents 2 Points: Age 61-74 years Thrombosis Risk Factor Assessment Total Risk Factor Score: 2 Thrombosis Risk Factor Assessment Level: Low Risk Assessment and Plan Plan: -Chest pain: Appears to be musculoskeletal atypical ruled out acute concurrent syndromes after which patient underwent stress test which is negative and patient is being discharged today. Patient was asked to take Tylenol as needed if her chest pain is bothersome. -Lightheadedness probably secondary to mild dehydration intravascular depletion patient will be given a bolus of IV fluids. -Mild acute renal failure secondary to assessment #2 -Hyperlipidemia patient will be started on statin will arrange follow-up with her primary care physician -Ruled out COVID 19 -Depression Plan as mentioned above
[2019-10-28] MEDS ORDERED: ATORVASTATIN 20 MG TAB PO SCH (21:00)
== END 2019-10-28 13:55 | disposition home or self-care (01) ==
LOC: EC 19:03 → 3SCARD 21:15
PROVIDERS: ADMIT Hospitalist; ATTEND Hospitalist
DX: R07.89 Other chest pain (principal); N17.9 Acute kidney failure, unspecified; E86.0 Dehydration; E78.5 Hyperlipidemia, unspecified; K58.9 Irritable bowel syndrome, unspecified; H40.9 Unspecified glaucoma; G43.909 Migraine, unspecified, not intractable, without status migrainosus; F41.9 Anxiety disorder, unspecified; F32.9 Major depressive disorder, single episode, unspecified; Z20.828 Contact with and (suspected) exposure to other viral communicable diseases; Z79.899 Other long term (current) drug therapy; Z88.5 Allergy status to narcotic agent; Z91.048 Other nonmedicinal substance allergy status; Z87.81 Personal history of (healed) traumatic fracture; Z90.710 Acquired absence of both cervix and uterus; Z82.0 Family history of epilepsy and other diseases of the nervous system; Z82.49 Family history of ischemic heart disease and other diseases of the circulatory system; Z81.8 Family history of other mental and behavioral disorders; Z83.49 Family history of other endocrine, nutritional and metabolic diseases; Z82.5 Family history of asthma and other chronic lower respiratory diseases
CPT/HCPCS: 93005 ×2; 99285; 36415; 93351; 80061; 80053; 83690; 83735; 84484 ×2; 85025; 85610; 85730; 87635; 71046; G0378 ×2

== ENCOUNTER → 2020-03-05 | Outpatient (CLI) | payer MEDICARE, OTHER ==
--- NOTE | 2020-03-07 12:06 | US ---
EXAMINATION TYPE: US thyroid st tissue head/neck DATE OF EXAM: 03/05/2020 COMPARISON: NONE CLINICAL HISTORY: 74-year-old female E04.1 thyroid nodule. TECHNIQUE: Multiple sonographic images of the thyroid gland are obtained. FINDINGS: GLAND SIZE: Right Lobe: 4.7 x 2.8 x 2.6 cm Overall Parenchyma: Homogeneous Left Lobe: 4.6 x 1.8 x 1.2 cm cm Overall Parenchyma: homogeneous Isthmus Thickness: Is 2.6 mm NODULES RIGHT: # of nodules measured on right: 2 1. 1.0 X 0.7 x 0.6 cm isoechoic solid nodule at the upper pole with well-defined margins; . This n odule is wider than tall and shows intranodular vascularity. Prior size: 1.0 x 1.0 x 0.7 cm 2. 3.2 X 2.8 x 2.3 cm isoechoic solid nodule with a small 0.8 x 0.7 x 0.6 cm cystic area at the mid/ lower pole with well-defined margins; . This nodule is wider than tall and shows intranodular vascul arity. Prior size: 2.9 x 2.4 x 2.5 cm LEFT: # of nodules measured on left: 2 1. 1.3 X 0.8 x 0.7 cm hypoechoic solid nodule at the mid pole with well-defined margins; . This no dule is wider than tall and shows intranodular vascularity. Prior size: 1.3 x 0.7 x 1.0 cm 2. 0.8 x 0.6 x 0.5 cm isoechoic solid nodule at the lower pole with poorly defined margins; . This n odule is wider than tall and shows intranodular vascularity. Prior size: Not seen previously ISTHMUS: # of nodules measured in the isthmus: 0 Bilateral neck scanned, no evidence of lymphadenopathy. IMPRESSION: 1. Findings suspected to represent multinodular goiter. 2 solid nodules on either side, the largest i s at the right lower pole measuring up to 3.2 x 2.8 cm (increased in size slightly as compared to 2.9 x 2.5 cm, previously) and at the left midpole measuring 1.3 cm (not significantly changed). 2. 8 mm solid nodule at the left lower pole was not identified previously and should be reassessed on follow-up.
== END | disposition home or self-care (01) ==
LOC: RADUSWWP 14:20
PROVIDERS: ATTEND Otolaryngology
DX: E04.2 Nontoxic multinodular goiter (principal)
CPT/HCPCS: 76536

== ENCOUNTER 2021-05-28 21:17 | Emergency (ER) | payer MEDICARE, OTHER ==
--- NOTE | 2021-05-28 23:10 | XR ---
EXAMINATION TYPE: XR wrist complete LT DATE OF EXAM: 05/28/2021 COMPARISON: NONE HISTORY: Fall. Wrist pain. TECHNIQUE: 3 views FINDINGS: There is transverse fracture of the distal radial metaphysis. There is 1 cm posterior displ acement. There is impaction and angulation. There is soft tissue swelling around the carpus. There is ulnar styloid process fracture with posterior displacement. There is no dislocation of the radiocarp al joint. There is narrowing and spurring at the first carpometacarpal joint. IMPRESSION: Acute angulated impacted fracture of the distal radius with displacement. Ulnar styloid p rocess displaced fracture.
--- NOTE | 2021-05-28 23:11 | XR ---
EXAMINATION TYPE: XR humerus LT DATE OF EXAM: 05/28/2021 COMPARISON: NONE HISTORY: Fall. Pain TECHNIQUE: 2 views FINDINGS: Shoulder joint is intact. Elbow joint appears intact. I see no fracture. IMPRESSION: Negative left humerus exam. Distal humerus not well seen.
[2021-05-29] MEDS ORDERED: LIDOCAINE 1%-EPI 1:100,000 20 ML VIAL SQ STA (00:04)
[2021-05-29] MEDS ORDERED: SODIUM CHLORIDE 0.9% 500 ML 500 ML IV STA (00:36)
[2021-05-29] MEDS ORDERED: PROPOFOL 10 MG/ML 20 ML VIAL IV ONE (00:36)
[2021-05-29] MEDS ORDERED: MORPHINE SULFATE 4 MG/ML SYRINGE IVP STA (00:36)
--- NOTE | 2021-05-29 00:37 | ED ---
Upper Extremity HPI - General Chief Complaint: Extremity Injury, Upper Stated Complaint: LT arm injury Time Seen by Provider: 05/28/21 23:07 Source: patient, RN notes reviewed, old records reviewed Mode of arrival: ambulatory Limitations: no limitations - History of Present Illness Initial Comments: This is a 75-year-old female to the emergency room tontim. Patient presents today for evaluation in regards to left arm pain after fall. Significant left wrist pain. No other injury noted. Patient does have history of hip fracture, no other traumatic injury. No head injury. Follows mechanical in nature walking dog on ice. Patient has otherwise no medical history and takes no medications Complaint: Injury to:: left, wrist -: hour(s) Other Extremity Injury: Wrist: Left Other Injuries: none Handedness: right Place: home Severity scale (1-10): 10 Improves With: none Worsens With: none Context: fall, direct blow Associated Symptoms: denies other symptoms Treatments Prior to Arrival: other (none) - Related Data Home Medications Medication Instructions Recorded Confirmed Escitalopram Oxalate 15 mg PO DAILY 03/08/16 10/27/19 Latanoprost [Xalatan 0.005%] 1 drop BOTH EYES HS 03/08/16 10/27/19 Cholecalciferol [Vitamin D3 (25 5,000 unit PO DAILY 06/04/18 10/27/19 Mcg = 1000 Iu)] Brimonidine Tartrate [Alphagan P 1 drops BOTH EYES BID 10/27/19 10/27/19 0.2% Ophth Soln] Dorzolamide 2% [Trusopt 2%] 1 drops BOTH EYES BID 10/27/19 10/27/19 LORazepam [Ativan] 1 mg PO HS 10/27/19 10/27/19 Ubidecarenone [Co Q-10] 100 mg PO DAILY 10/27/19 10/27/19 Previous Rx's Medication Instructions Recorded Atorvastatin [Lipitor] 20 mg PO HS #30 tab 10/28/19 Allergies Allergy/AdvReac Type Severity Reaction Status Date / Time hydromorphone [From Dilaudid] AdvReac Nausea & Verified 05/28/21 22:37 Vomiting iodine AdvReac Anaphylaxis Verified 05/28/21 22:37 Review of Systems ROS Statement: Those systems with pertinent positive or pertinent negative responses have been documented in the HPI. ROS Other: All systems not noted in ROS Statement are negative. Past Medical History Past Medical History: Hyperlipidemia Additional Past Medical History / Comment(s): neck injury - fx, glaucoma, migraine headaches, irritable bowel syndrome History of Any Multi-Drug Resistant Organisms: None Reported Past Surgical History: Bladder Surgery, Hysterectomy, Orthopedic Surgery Additional Past Surgical History / Comment(s): thyroid, cystocele, rectocele, breast biopsy Left breast Past Anesthesia/Blood Transfusion Reactions: Postoperative Nausea & Vomiting (PONV) Past Psychological History: Anxiety, Depression Smoking Status: Never smoker Past Alcohol Use History: Occasional Past Drug Use History: None Reported - Past Family History Mother Family Medical History: Congestive Heart Failure (CHF) Additional Family Medical History / Comment(s): parkinsons. Mother at age 86 from heart failure with history of dementia. Father Family Medical History: Hyperlipidemia, Pneumonia Additional Family Medical History / Comment(s): Father at age 90 after bladder was perforated and suffered pneumonia at the time of his . Sister(s) Additional Family Medical History / Comment(s): it was just straighten out again patient has 1 sister with no major medical problems. Patient has one twin brother that at 2 weeks of age. Patient has one son that 9 years ago in a motor vehicle accident. Patient's one daughter with no major medical problems. General Exam Limitations: no limitations General appearance: alert, in no apparent distress Head exam: Present: atraumatic, normocephalic, normal inspection Eye exam: Present: normal appearance, PERRL, EOMI. Absent: scleral icterus, conjunctival injection, periorbital swelling ENT exam: Present: normal exam, mucous membranes moist Neck exam: Present: normal inspection. Absent: tenderness, meningismus, lymphadenopathy Respiratory exam: Present: normal lung sounds bilaterally. Absent: respiratory distress, wheezes, rales, rhonchi, stridor Cardiovascular Exam: Present: regular rate, normal rhythm, normal heart sounds. Absent: systolic murmur, diastolic murmur, rubs, gallop, clicks GI/Abdominal exam: Present: soft, normal bowel sounds. Absent: distended, tenderness, guarding, rebound, rigid Extremities exam: Present: normal inspection, full ROM, normal capillary refill, other (Significant distress deformity of her left wrist. He does have good pulses and range of motion). Absent: tenderness, pedal edema, joint swelling, calf tenderness Back exam: Present: normal inspection Neurological exam: Present: alert, oriented X3, CN II-XII intact Psychiatric exam: Present: normal affect, normal mood Skin exam: Present: warm, dry, intact, normal color. Absent: rash Course Vital Signs 05/28/21 05/29/21 05/29/21 22:33 01:35 01:40 Temperature 97.4 F L Pulse Rate 80 80 98 Respiratory 20 16 18 Rate Blood Pressure 170/90 142/80 143/103 O2 Sat by Pulse 99 100 100 Oximetry 05/29/21 05/29/21 05/29/21 01:45 01:50 02:00 Temperature Pulse Rate 83 71 77 Respiratory 12 16 20 Rate Blood Pressure 143/103 136/76 144/71 O2 Sat by Pulse 100 100 100 Oximetry 05/29/21 05/29/21 05/29/21 02:05 02:21 02:41 Temperature 97.7 F Pulse Rate 71 77 85 Respiratory 16 20 18 Rate Blood Pressure 144/71 143/91 144/78 O2 Sat by Pulse 100 100 100 Oximetry - Reevaluation(s) Reevaluation #1: 05/29/21 04:34 Medical record is reviewed Reevaluation #2: 05/29/21 04:35 Patient informed results and questions answered Reevaluation #3: 05/29/21 04:35 Patient has adequate pain control Procedures - Orthopedic Fracture Reduction Fracture #1 Consent Obtained: verbal consent Side: left Fracture Reduction Location: radius, ulna Analgesia: procedural sedation, hematoma block Technique: direct manipulation, traction/counter-traction Post Reduction X-rays Demonstrate: anatomical reduction Post-Reduction Neuro Exam: intact Post-Reduction Vascular Exam: intact Splint Applied: Yes Patient Tolerated Procedure: well - Procedural Sedation Procedural Sedation Start Time: 01:00 Procedural Sedation Stop Time: 01:40 Indications: incision and drainage of abscess ASA Class: I Mallampati Airway Score: 1 Preparation: cafeteria monitor applied, pulse oximeter, capnometry used, supplemental O2 applied IV Propofol Dose (mgs): 200 Complications: none Interventions: oxygen applied Patient Tolerated Procedure: well Medical Decision Making - Medical Decision Making 75 female to the emergency department today. Patient presents today for evaluation regards to left wrist fracture which is reduced here in the ER under sedation, splinted and patient can be discharged home - Radiology Data Radiology results: report reviewed (X-ray left wrist shows fracture, repeat does show successful reduction), image reviewed Disposition Clinical Impression: Fall, Fracture dislocation of left wrist, Fracture of left distal radius Disposition: HOME SELF-CARE Condition: Good Instructions (If sedation given, give patient instructions): Wrist Injury (ED), Arm Fracture in Adults (ED), Moderate Sedation (ED) Is patient prescribed a controlled substance at d/c from ED?: No Referrals: Ke Jerez MD [STAFF PHYSICIAN] - 1-2 days
[2021-05-29] MEDS ORDERED: ONDANSETRON 4 MG/2 ML VIAL IVP STA (01:06)
--- NOTE | 2021-05-29 02:16 | XR ---
EXAMINATION TYPE: XR wrist limited LT DATE OF EXAM: 05/29/2021 COMPARISON: NONE HISTORY: Post reduction TECHNIQUE: 2 views FINDINGS: There is transverse fracture distal radial metaphysis. There is transverse fracture of the ulnar styloid process. There is fairly good apposition and alignment of the fragments. There is no di slocation. Carpal bones are intact. IMPRESSION: There is fairly good anatomic reduction of the fracture distal radius and ulna compared t o initial exam. No complicating process seen.
[2021-05-29] MEDS ORDERED: ACET/COD 300 MG/30 MG STARTER PACK 6 TAB BTL PO STA (02:20)
[2021-05-29 02:43] VITALS: BP 144/78; PULSE 85; RESP 18; TEMP 97.7
== END 2021-05-29 02:41 | disposition home or self-care (01) ==
LOC: EC 21:17
DX: S52.592A Other fractures of lower end of left radius, initial encounter for closed fracture (principal); E78.5 Hyperlipidemia, unspecified; F41.9 Anxiety disorder, unspecified; F32.A Depression, unspecified; Z88.5 Allergy status to narcotic agent; Z90.710 Acquired absence of both cervix and uterus; W01.0XXA Fall on same level from slipping, tripping and stumbling without subsequent striking against object, initial encounter
CPT/HCPCS: 99283; 96374; 25605; 99152; 99153 ×2; 73060; 73100; 73110; J2405; J2704

== ENCOUNTER → 2021-11-08 | Outpatient (CLI) | payer MEDICARE, OTHER ==
--- NOTE | 2021-11-08 21:54 | US ---
EXAMINATION TYPE: US thyroid st tissue head/neck DATE OF EXAM: 11/08/2021 COMPARISON: 03/05/2020 CLINICAL HISTORY: 76-year-old female E04.1 THYROID NODULE. f/u exam TECHNIQUE: Multiple sonographic images of the thyroid gland are obtained. FINDINGS: GLAND SIZE: Right Lobe: 5.0 x 2.9 x 3.5 cm Overall Parenchyma: heterogenous Left Lobe: 4.4 x 2.1 x 1.1 cm Overall Parenchyma: heterogeneous Isthmus Thickness: 0.2 cm NODULES RIGHT: # of nodules measured on right: 1 (previous cystic area measured is within larger nodule) 1. 3.9 X 3.0 x 3.1 cm, mid, mixed cystic and solid, primarily solid TR 4 hypoechoic nodule, which i s wider than tall, with smooth margins, without echogenic foci. Prior size: 3.2 x 2.8 x 2.3 cm LEFT: # of nodules measured on left: 2 1. 1.3 X 0.9 x 0.8 cm, mid , solid or almost completely solid, TR 4 hypoechoic nodule, which is wid er than tall, with smooth margins, without echogenic foci. Prior size: 1.3 x 0.8 x 0.7 cm 2. 0.8 X 0.6 x 0.4 cm, lower , solid or almost completely solid, TR 4 hypoechoic nodule, which is wider than tall, with smooth margins, without echogenic foci. Prior size: 0.8 x 0.6 x 0.5 cm ISTHMUS: # of nodules measured in the isthmus: 0 Bilateral neck scanned, no evidence of lymphadenopathy. IMPRESSION: 1. Correlate for multinodular goiter. 2. The primarily solid TR4 nodule in the right lobe shows slight interval increase in size (now 3.9 x 3.1 cm versus 3.2 x 2.8 cm, previously). FNA if not previously performed. 3. The smaller TR4 nodules in the left lobe measuring 1.3 cm are unchanged.
== END | disposition home or self-care (01) ==
LOC: RADUSWWP 14:19
PROVIDERS: ATTEND Otolaryngology
DX: E04.2 Nontoxic multinodular goiter (principal)
CPT/HCPCS: 76536

== ENCOUNTER → 2022-06-15 | Outpatient (CLI) | payer MEDICARE, OTHER ==
--- NOTE | 2022-06-20 07:25 | MM ---
Reason for Exam: Screening (asymptomatic). Last mammogram was performed 4 year(s) and 3 month(s) ago. Patient History: Menarche at age 12. First Full-Term at age 27. Hysterectomy at age 40. Postmenopausal. Estrogen for 1 year, 6 months. Excisional Biopsy on the Left side. Risk Values: Cecile 5 year model risk: 2.5%. NCI Lifetime model risk: 5.8%. Prior Study Comparison: 09/12/2006 Bilateral Screening Mammogram, [facility]. 10/16/2007 Bilateral Screening Mammogram, [facility]. 04/02/2008 Bilateral Diagnostic Mammogram, [facility]. 09/15/2014 Bilateral MG screening mammo w CAD - 2, [facility]. 03/18/2018 Bilateral MG screening mammo w CAD - 2, [facility]. Tissue Density: The breast tissue is heterogeneously dense. This may lower the sensitivity of mammography. Findings: Analyzed By CAD. There is no suspicious group of microcalcifications or new suspicious mass in either breast. Stable focal asymmetry in the upper outer quadrant of the right breast. No significant change from prior exams. Overall Assessment: Benign, BI-RAD 2 Management: Screening Mammogram of both breasts in 1 year. A clinical breast exam by your physician is recommended on an annual basis and results should be correlated with mammographic findings. Electronically signed and approved by: Naseem Munson D.O.
== END | disposition home or self-care (01) ==
LOC: RADMAMWWP 16:29
PROVIDERS: ATTEND Internal Medicine
DX: Z12.31 Encounter for screening mammogram for malignant neoplasm of breast (principal); Z78.0 Asymptomatic menopausal state
CPT/HCPCS: 77063; 77067

== ENCOUNTER → 2022-12-27 | Outpatient (CLI) | payer MEDICARE, OTHER ==
--- NOTE | 2022-12-27 15:41 | BD ---
EXAMINATION TYPE: Axial Bone Density DATE OF EXAM: 12/27/2022 CLINICAL HISTORY: 77 years old Female. ICD-10 CODE: Z78.0 OSTEOPOROSIS Height: 69 Weight: 161 FRAX RISK QUESTIONS: Family History (Parent hip fracture): yes Glucocorticoids (More than 3mos): yes (Ex: prednisone, prednisolone, methylprednisolone, dexamethasone, and hydrocortisone). History of Fracture in Adulthood: yes RISK FACTORS HISTORY OF: yes, rt hip fx as an adult History of Wrist Fracture: yes, lt wrist, as an adult Surgery to rt hip with rodding and pinning after a fracture. Family History of Osteoporosis: yes, mother with hip fx Postmenopausal woman: yes, at about 50 yrs old, partial hx at 34 Hyperparathyroidism: no Adrenal Insufficiency: no MEDICATIONS: Prednisone or other steroids: yes, asthma, for many yrs Additional Medications: lexapro, vit d and zinc, Additional History: asthma, anxiety, EXAM MEASUREMENTS: Bone mineral densitometry was performed using the Viss System. Bone mineral density as measured about the Lumbar spine is: ----- L1-L4(G/cm2): 1.000 T Score Values are as follows: ----- L1: -0.1 ----- L2: -1.9 ----- L3: -2.4 ----- L4: -1.9 ----- L1-L4: -1.5 Z Score Values are as follows: ----- L1: 1.4 ----- L2: -0.4 ----- L3: -0.9 ----- L4: -0.4 ----- L1-L4: 0.0 Bone mineral density has: Decreased -2.7% since: Bone mineral density about the L hip (g/cm2): 0.821 T Score values are as follows: -----L Neck: -1.8 -----L Total: -1.5 Z Score values are as follows: -----L Neck: 0.0 -----L Total: 0.1 Bone mineral density has: Decreased 10 % since: 09.12.2006 FRAX%s: The graph provided illustrates a 44.0% chance for a major osteoporotic fx and a 27.0% chance for the hips probability for fx in 10 years time. IMPRESSION: Osteopenia (T Score between -2.5 and -1). There is slightly increased risk of fracture and the patient may be considered for treatment. Re-Screen 2-5 years. NOTE: T-SCORE=SD OF THE YOUNG ADULT MEAN.
== END | disposition home or self-care (01) ==
LOC: RADBDWWP 09:27
PROVIDERS: ATTEND Internal Medicine
DX: Z13.820 Encounter for screening for osteoporosis (principal); M85.89 Other specified disorders of bone density and structure, multiple sites; Z78.0 Asymptomatic menopausal state
CPT/HCPCS: 77080